=== PATIENT | male | born 1955 | race African-American/Black ===

== ENCOUNTER 2016-03-07 11:27 | Inpatient (IN) | payer OTHER ==
[2016-03-07 12:29] VITALS: BMI 34.7
--- NOTE | 2016-03-07 14:02 | HP ---
CIWA Score - CIWA Score Nausea/Vomitin-Int. Nausea w/Dry Heave (AND DIARRHEA) Muscle Tremors: 4-Moderate,w/Arms Extend Anxiety: 4-Mod. Anxious/Guarded Agitation: 4-Moderately Restless Paroxysmal Sweats: 1-Minimal Palms Moist Orientation: 0-Oriented Tacttile Disturbances: 3-Moderate Itch/Numb/Burn Auditory Disturbances: 0-None Visual Disturbances: 0-None Headache: 0-None Present CIWA-Ar Total Score: 20 Admission ROS S - HPI Chief Complaint: DETOX TX FOR ALCOHOL AND CRACK DEPENDENCE. Allergies/Adverse Reactions: Allergies Allergy/AdvReac Type Severity Reaction Status Date / Time shellfish derived Allergy Severe Hives Verified 09/05/14 11:33 No Known Drug Allergies Allergy Verified 09/05/14 11:33 BEETS Allergy Severe Hives Uncoded 09/05/14 11:33 History of Present Illness: 60 Y/O AA/MALE WITH A HX OF ALCOHOL AND CRACK DEPENDENCE SEEKING DETOX TX. ON OXYCODONE PRN FOR PAIN. Exam Limitations: No Limitations - Ebola screening Have you traveled outside of the country in the last 21 days: No Have you had contact with anyone from an Ebola affected area: No Have you been sick,other than usual withdrawal symptoms: No Do you have a fever: No - Review of Systems Constitutional: Chills, Night Sweats, Changes in sleep EENT: reports: Blurred Vision (WEARS GLASSES), Dental Problems (UPPER DENTURE IN PLACE; HAS BILATERAL DENTURES) Respiratory: reports: Shortness of Breath (HX ASTHMA), Wheezing Cardiac: reports: No Symptoms Reported GI: reports: Constipated, Diarrhea, Nausea, Vomiting : reports: No Symptoms Reported Musculoskeletal: reports: Back Pain (THREE HERNIATED DISCS), Joint Pain, Muscle Pain Integumentary: reports: No Symptoms Reported Neuro: reports: Headache (HX MIGRAINE HADACHES), Tremors, Unsteady Gait, Dizziness Endocrine: reports: No Symptoms Reported Hematology: reports: No Symptoms Reported Psychiatric: reports: Orientated x3, Anxious, Depressed (ON TRAZODONE) Other Systems: Reviewed and Negative Patient History - Patient Medical History Hx Anemia: No Hx Asthma: Yes (on inhaler) Hx Chronic Obstructive Pulmonary Disease (COPD): Yes (albuterol) Hx Cancer: No Hx Cardiac Disorders: No Hx Congestive Heart Failure: No Hx Hypertension: Yes (Patient is on meds.) Hx Hypercholesterolemia: Yes (on zocor) Hx Pacemaker: No HX Cerebrovascular Accident: No Hx Seizures: Yes (etoh rlt) Hx Dementia: No Hx Diabetes: No Hx Gastrointestinal Disorders: No Hx Genitourinary Disorders: No Hx Sexually Transmitted Disorders: No Hx Renal Disease (ESRD): No Hx Thyroid Disease: No Hx Human Immunodeficiency Virus (HIV): No (NEGATIVE HX) Hx Hepatitis C: No Hx Depression: Yes (ON MED) Hx Suicide Attempt: No (DENIES) Hx Bipolar Disorder: No Hx Schizophrenia: No - Patient Surgical History Past Surgical History: Yes Hx Neurologic Surgery: No Hx Cataract Extraction: No Hx Cardiac Surgery: No Hx Lung Surgery: No Hx Breast Surgery: No Hx Breast Biopsy: No Hx Abdominal Surgery: No Hx Appendectomy: No Hx Cholecystectomy: No Hx Genitourinary Surgery: No Hx Orthopedic Surgery: Yes (surgery for torn ligament right knee in 2007) Anesthesia Reaction: No - PPD History Previous Implant?: No Documented Results: Positive w/o proof Implanted On Prior R Admission?: No PPD to be Administered?: Yes - Reproductive History Patient is a Female of Child Bearing Age (11 -55 yrs old): No (MALE) - Smoking Cessation Smoking history: Current every day smoker Have you smoked in the past 12 months: Yes Aproximately how many cigarettes per day: 5 Cigars Per Day: 0 Hx Chewing Tobacco Use: No Initiated information on smoking cessation: Yes 'Breaking Loose' booklet given: 03/07/16 - Substance & Tx. History Hx Alcohol Use: Yes (VODKA/COGNAC/BEER) Hx Substance Use: Yes (CRACK) Substance Use Type: Alcohol, Cocaine Hx Substance Use Treatment: Yes - Substances Abused Alcohol Route: Oral Frequency: Daily Amount used: henessy / vodka 5 pints- beer 10. $60 Age of first use: 14 Date of Last Use: 03/07/16 Crack Route: Smoking Frequency: Daily Amount used: $200- 20bags Age of first use: 30 Date of Last Use: 03/05/16 Family Disease History - Family Disease History Family Disease History: Diabetes: Grandparent (HTN), Mother (HTN,LUNG CA.), Heart Disease: Grandparent, Mother Admission Physical Exam BHS - Vital Signs Vital Signs: Vital Signs - 24 hr 03/07/16 12:27 Temperature 96.9 F L Pulse Rate 84 Respiratory 18 Rate Blood Pressure 120/73 - Physical General Appearance: Yes: Moderate Distress, Irritable, Anxious HEENTM: Yes: EOMI, Normocephalic, AUNG, Pharynx Normal Respiratory: Yes: Chest Non-Tender, Lungs Clear, Normal Breath Sounds, No Respiratory Distress Neck: Yes: Supple, Trachea in good position Breast: Yes: Breast Exam Deferred Cardiology: Yes: Regular Rhythm, Regular Rate, S1, S2 Abdominal: Yes: Normal Bowel Sounds, Non Tender, Soft Genitourinary: Yes: Other (N/C) Musculoskeletal: Yes: full range of Motion, Gait Steady (WITH USE OF CANE) Extremities: Yes: Normal Range of Motion, Non-Tender Neurological: Yes: medicaid plan compliance director II-XII NML intact, Fully Oriented, Alert Integumentary: Yes: Dry, Warm Lymphatic: Yes: Within Normal Limits - Diagnostic (1) Asthma Current Visit: Yes Status: Chronic (2) Essential hypertension Current Visit: Yes Status: Chronic (3) Nicotine dependence Current Visit: Yes Status: Chronic (4) Obesity Current Visit: Yes Status: Chronic (5) Rash of groin Current Visit: No Status: Resolved (6) Alcohol dependence with uncomplicated withdrawal Current Visit: Yes Status: Acute (7) Cocaine dependence, uncomplicated Current Visit: Yes Status: Acute (8) Use of cane as ambulatory aid Current Visit: Yes Status: Chronic (9) Hypercholesterolemia Current Visit: Yes Status: Chronic Cleared for Admission [facility] - Detox or Rehab [facility] Level of Care: Medically Managed Detox Regimen/Protocol: Librium [facility] Breath Alcohol Content Breath Alcohol Content: 0.030 Urine Drug Screen - Results Drug Screen Negative: No Urine Drug Screen Results: THC-Marijuana, KIARA-Cocaine, OPI-Opiates
[2016-03-07] MEDS ORDERED: MAG HYDROX/AL HYDROX/SIMETH 30 ML UNIT-DOSE CUP PO PRN (14:09)
[2016-03-07] MEDS ORDERED: IBUPROFEN 400 MG TABLET (FP) PO PRN (14:09)
[2016-03-07] MEDS ORDERED: MENTHOL/PHENOL 1 EACH UD MM PRN (14:09)
[2016-03-07] MEDS ORDERED: diphenhydrAMINE HCL 50 MG CAPSULE PO PRN (14:09)
[2016-03-07] MEDS ORDERED: P-EPHED 60MG/TRIPROLIDI 2.5MG TABLET PO PRN (14:09)
[2016-03-07] MEDS ORDERED: NICOTINE POLACRILEX 2 MG GUM BUC PRN (14:09)
[2016-03-07] MEDS ORDERED: ACETAMINOPHEN 325 MG TABLET (FP) PO PRN (14:09)
[2016-03-07] MEDS ORDERED: guaiFENesin/D-METHORPHAN HB 10 ML UNIT-DOSE CUPS PO PRN (14:09)
[2016-03-07] MEDS ORDERED: MAGNESIUM HYDROX 2400MG/30ML ORAL SUSPENSION 30 ML CUP PO PRN (14:09)
[2016-03-07] MEDS ORDERED: MAGNESIUM CITRATE 300 ML BOTTLE PO PRN (14:09)
[2016-03-07] MEDS ORDERED: ALBUTEROL SO4 6.7 GM HFA INHALER IH PRN (14:13)
[2016-03-07] MEDS ORDERED: IBUPROFEN PO SCH (14:15)
[2016-03-07] MEDS: NICOTINE 14 MG/24 HOURS TOPICAL PATCH TD SCH (15:46)
[2016-03-07] MEDS: chlordiazePOXIDE HCL 25 MG CAPSULE PO PRN (15:47)
[2016-03-07] MEDS: chlordiazePOXIDE HCL 25 MG CAPSULE PO SCH ×2 (17:29→22:16)
[2016-03-07 20:26] LABS: URINE APPEARANCE CLEAR; URINE BILIRUBIN NEGATIVE (NEGATIVE); URINE BLOOD NEGATIVE (NEGATIVE); URINE COLOR DKYELLOW; URINE GLUCOSE (UA) NEGATIVE (NEGATIVE); URINE KETONE NEGATIVE (NEGATIVE); URINE LEUK ESTERASE NEGATIVE (NEGATIVE); URINE NITRITE NEGATIVE (NEGATIVE); URINE PROTEIN NEGATIVE (NEGATIVE); URINE UROBILINOGEN 2.0 E.U/dl E.U./dl (0.2-1.0)
[2016-03-07] MEDS: THIAMINE HCL 100 MG TABLET (FP) PO SCH (22:16)
[2016-03-07] MEDS: ATORVASTATIN CA 10 MG TABLET (FP) PO SCH (22:16)
[2016-03-08] MEDS: chlordiazePOXIDE HCL 25 MG CAPSULE PO SCH ×4 (05:33→22:12)
--- NOTE | 2016-03-08 08:16 | CONSULT ---
[facility] Psychiatric Consult - Data Date of interview: 03/08/16 Admission source: [facility] Identifying data: This is 60 years old male with no psychiatric hospitalization history, history of MDD, ambulating with cane, intoxicated with: Alcohol, Crack , Opioids and Nicotine Substance Abuse History: - Smoking Cessation. Smoking history: Current every day smoker. Have you smoked in the past 12 months: Yes. Aproximately how many cigarettes per day: 5. Cigars Per Day: 0. Hx Chewing Tobacco Use: No. Initiated information on smoking cessation: Yes. 'Breaking Loose' booklet given : 03/07/16. - Substance & Tx. History. Hx Alcohol Use: Yes (VODKA/COGNAC/BEER) . Hx Substance Use: Yes (CRACK). Substance Use Type: Alcohol, Cocaine. Hx Substance Use Treatment: Yes. - Substances Abused. Alcohol. Route: Oral. Frequency: Daily. Amount used: henessy / vodka 5 pints- beer 10. $60. Age of first use: 14. Date of Last Use: 03/07/16. Crack. Route: Smoking. Frequency: Daily. Amount used: $200- 20bags. Age of first use: 30. Date of Last Use: 03/05/16 Medical History: Asthma, HTN, Hypercholesterolemia, Obesity, Psychiatric History: Patient reports history of MDD, reports currently stable on : Celexa 20mg poqd. Trazodone 100mg po qhs Physical/Sexual Abuse/Trauma History: Denies Additional Comment: Celexa 20mg poqd. Trazodone 100mg po qhs Mental Status Exam - Mental Status Exam Alert and Oriented to: Person Cognitive Function: Fair Patient Appearance: Unkempt Mood: Sad Affect: Normal Range Patient Behavior: Sedated Speech Pattern: Delayed Voice Loudness: Normal Thought Process: Goal Oriented Thought Disorder: Being Controlled Hallucinations: Denies Suicidal Ideation: Denies Homicidal Ideation: Denies Insight/Judgement: Fair Sleep: Difficulty falling asleep Appetite: Weight gain Muscle strength/Tone: Mild Hypotonicity Gait/Station: Shuffling Additional Comments: Celexa 20mg poqd. Trazodone 100mg po qhs Psychiatric Findings - Problem List ([place] 1, 2,3) (1) Alcohol dependence with uncomplicated withdrawal Current Visit: Yes Status: Acute (2) Cocaine dependence, uncomplicated Current Visit: Yes Status: Acute (3) Nicotine dependence Current Visit: Yes Status: Chronic (4) Obesity Current Visit: Yes Status: Chronic (5) MDD (major depressive disorder) Current Visit: No Status: Acute (6) Opioid dependence Current Visit: No Status: Chronic - Initial Treatment Plan Initial Treatment Plan: Celexa 20mg poqd. Trazodone 100mg po qhs
[2016-03-08] MEDS: IBUPROFEN 400 MG TABLET (FP) PO PRN (09:14)
[2016-03-08 10:19] LABS: MCH 30.1 pg (25.7-33.7); MCHC 33.8 g/dl (32.0-35.9); MEAN CELL VOLUME 88.9 fl (80-96); PLATELET COUNT 219 K/MM3 (134-434); RDW 13.5 % (11.9-15.9); WHITE BLOOD COUNT 6.9 K/mm3 (4.0-10.0)
[2016-03-08] MEDS: PRENATAL VITAMINS W/ FOLIC ACID TABLET (FP) PO SCH (10:23)
[2016-03-08] MEDS: NICOTINE 14 MG/24 HOURS TOPICAL PATCH TD SCH (10:23)
[2016-03-08] MEDS: HYDROCHLOROTHIAZIDE 25 MG TABLET (FP) PO SCH (10:23)
[2016-03-08] MEDS: CITALOPRAM HYDROBROMIDE 20 MG TABLET (FP) PO SCH (10:23)
[2016-03-08 10:27] LABS: ALBUMIN 3.9 g/dl (3.4-5.0); ALK PHOS 52 U/L (45-117); ANION GAP 11 (8-16); BILIRUBIN,TOTAL 0.4 mg/dL (0.2-1.0); CO2 24 mmol/L (21-32); CREATININE 1.1 mg/dL (0.7-1.3); GLUCOSE,RANDOM 106 mg/dL (74-106); SGOT/AST 21 U/L (15-37); SGPT/ALT 25 U/L (12-78); TOT PROT 7.4 g/dl (6.4-8.2)
--- NOTE | 2016-03-08 11:09 | PN ---
S CIWA - CIWA Score Nausea/Vomitin-No Nausea/No Vomiting Muscle Tremors: 4-Moderate,w/Arms Extend Anxiety: 3 Agitation: 3 Paroxysmal Sweats: 2 Orientation: 0-Oriented Tacttile Disturbances: 0-None Auditory Disturbances: 0-None Visual Disturbances: 0-None Headache: 1-Very Mild CIWA-Ar Total Score: 13 BHS Progress Note (SOAP) Subjective: headache constipation interrupted sleep agitation sweats Objective: 03/08/16 11:07 Vital Signs Temperature 97.5 F L 03/08/16 10:03 Pulse Rate 75 03/08/16 10:03 Respiratory Rate 18 03/08/16 10:03 Blood Pressure 133/88 03/08/16 10:03 O2 Sat by Pulse Oximetry (%) Laboratory Tests 03/07/16 03/08/16 03/08/16 15:00 05:45 05:45 WBC 6.9 RBC 4.36 Hgb 13.1 D Hct 38.7 MCV 88.9 MCHC 33.8 RDW 13.5 Plt Count 219 MPV 9.0 Sodium 139 Potassium 3.7 Chloride 104 Carbon Dioxide 24 Anion Gap 11 BUN 13 D Creatinine 1.1 Creat Clearance w eGFR > 60 Random Glucose 106 D Calcium 9.0 Total Bilirubin 0.4 AST 21 D ALT 25 Alkaline Phosphatase 52 Total Protein 7.4 Albumin 3.9 Urine Color Dkyellow Urine Appearance Clear Urine pH 6.0 Ur Specific [place] 1.029 Urine Protein Negative Urine Glucose (UA) Negative Urine Ketones Negative Urine Blood Negative Urine Nitrite Negative Urine Bilirubin Negative Urine Urobilinogen 2.0 e.u/dl Ur Leukocyte Esterase Negative awake/alert ambulating no acute distress labs pending Assessment: 03/08/16 11:07 withdrawal sx Plan: continue detox increase fluids citroma prn
[2016-03-08 11:39] LABS: HIV 1 & 2 AB NEGATIVE; HIV 1 AGp24 NEGATIVE
--- NOTE | 2016-03-08 17:06 | EKG ---
Test Reason : Blood Pressure : / mmHG Vent. Rate : 082 BPM Atrial Rate : 082 BPM P-R Int : 174 ms QRS Dur : 080 ms QT Int : 364 ms P-R-T Axes : 070 050 032 degrees QTc Int : 425 ms NORMAL SINUS RHYTHM NORMAL ECG NO PREVIOUS ECGS AVAILABLE Confirmed by TRACEY JIMENEZ MD ([id number]) on 03/08/2016 5:06:41 PM Referred By: Confirmed By:TRACEY JIMENEZ MD
[2016-03-08] MEDS: traZODone HCL 100 MG TABLET (FP) PO SCH (22:12)
[2016-03-08] MEDS: ATORVASTATIN CA 10 MG TABLET (FP) PO SCH (22:12)
[2016-03-08] MEDS: THIAMINE HCL 100 MG TABLET (FP) PO SCH (22:12)
[2016-03-09] MEDS: chlordiazePOXIDE HCL 25 MG CAPSULE PO SCH ×2 (05:34→10:38)
[2016-03-09] MEDS ORDERED: ASPIRIN 81 MG CHEWABLE TABLETS PO ONE (09:19)
[2016-03-09] MEDS ORDERED: NITROGLYCERIN SUBLINGUAL 1/150 0.4 MG TAB SL ONE (09:20)
[2016-03-09] MEDS: PRENATAL VITAMINS W/ FOLIC ACID TABLET (FP) PO SCH (09:39)
[2016-03-09] MEDS: HYDROCHLOROTHIAZIDE 25 MG TABLET (FP) PO SCH (09:39)
[2016-03-09] MEDS: CITALOPRAM HYDROBROMIDE 20 MG TABLET (FP) PO SCH (09:39)
[2016-03-09] MEDS: NICOTINE 14 MG/24 HOURS TOPICAL PATCH TD SCH (10:35)
--- NOTE | 2016-03-09 10:55 | PN ---
[facility] CIWA - CIWA Score Nausea/Vomitin-No Nausea/No Vomiting Muscle Tremors: 3 Anxiety: 3 Agitation: 3 Paroxysmal Sweats: 3 Orientation: 0-Oriented Tacttile Disturbances: 0-None Auditory Disturbances: 0-None Visual Disturbances: 0-None Headache: 0-None Present CIWA-Ar Total Score: 12 S Progress Note (SOAP) Subjective: chest pain or heart burn not sure sweats interrupted sleep body aches Objective: 03/09/16 10:52 Vital Signs Temperature 97.5 F L 03/09/16 10:00 Pulse Rate 78 03/09/16 10:00 Respiratory Rate 18 03/09/16 10:00 Blood Pressure 124/76 03/09/16 10:00 O2 Sat by Pulse Oximetry (%) Laboratory Tests 03/07/16 03/07/16 03/08/16 13:50 15:00 05:45 WBC 6.9 RBC 4.36 Hgb 13.1 D Hct 38.7 MCV 88.9 MCHC 33.8 RDW 13.5 Plt Count 219 MPV 9.0 Sodium Potassium Chloride Carbon Dioxide Anion Gap BUN Creatinine Creat Clearance w eGFR Random Glucose Calcium Total Bilirubin AST ALT Alkaline Phosphatase Total Protein Albumin Urine Color Dkyellow Urine Appearance Clear Urine pH 6.0 Ur Specific [place] 1.029 Urine Protein Negative Urine Glucose (UA) Negative Urine Ketones Negative Urine Blood Negative Urine Nitrite Negative Urine Bilirubin Negative Urine Urobilinogen 2.0 e.u/dl Ur Leukocyte Esterase Negative RPR Titer Hepatitis C Antibody HIV 1&2 Antibody Screen Negative HIV P24 Antigen Negative 03/08/16 03/08/16 03/08/16 05:45 05:45 05:45 WBC RBC Hgb Hct MCV MCHC RDW Plt Count MPV Sodium 139 Potassium 3.7 Chloride 104 Carbon Dioxide 24 Anion Gap 11 BUN 13 D Creatinine 1.1 Creat Clearance w eGFR > 60 Random Glucose 106 D Calcium 9.0 Total Bilirubin 0.4 AST 21 D ALT 25 Alkaline Phosphatase 52 Total Protein 7.4 Albumin 3.9 Urine Color Urine Appearance Urine pH Ur Specific [place] Urine Protein Urine Glucose (UA) Urine Ketones Urine Blood Urine Nitrite Urine Bilirubin Urine Urobilinogen Ur Leukocyte Esterase RPR Titer Nonreactive Hepatitis C Antibody <0.1 HIV 1&2 Antibody Screen HIV P24 Antigen repeat ekg nitrostat 0.4mg x one asa 81mg x one Assessment: 03/09/16 10:53 withdrawal sx Plan: continue detox increase fluids repeat ekg results reveal normal ekg; no difference from previous ekg nitrostat x one f/u pt status
[2016-03-09] MEDS: chlordiazePOXIDE 5 MG CAPSULE PO SCH ×2 (19:15→22:17)
[2016-03-09] MEDS: chlordiazePOXIDE HCL 25 MG CAPSULE PO PRN (19:46)
[2016-03-09] MEDS: ATORVASTATIN CA 10 MG TABLET (FP) PO SCH (22:17)
[2016-03-09] MEDS: THIAMINE HCL 100 MG TABLET (FP) PO SCH (22:17)
[2016-03-09] MEDS: traZODone HCL 100 MG TABLET (FP) PO SCH (22:17)
[2016-03-09] MEDS: IBUPROFEN 400 MG TABLET (FP) PO PRN (22:19)
[2016-03-09] MEDS ORDERED: ALBUTEROL SO4 6.7 GM HFA INHALER IH ONE (22:24)
[2016-03-10] MEDS: BUDESONIDE/FORMETEROL FUMARATE 80/4.5 mcg INHALER IH SCH ×2 (01:40→22:43)
[2016-03-10] MEDS: chlordiazePOXIDE 5 MG CAPSULE PO SCH ×2 (06:01→10:50)
[2016-03-10] MEDS: ALBUTEROL SO4 0.5 % INH SOLN 2.5 MG/0.5 ML VIAL.NEB. NEB PRN ×2 (06:30→17:00)
--- NOTE | 2016-03-10 09:44 | PN ---
S Progress Note (SOAP) Subjective: nausea, sweats, interrupted sleep, anxiety, trmeors, diarrhea reported Objective: 03/10/16 09:44 Vital Signs - 24 hr 03/09/16 03/09/16 03/09/16 10:00 17:47 21:54 Temperature 97.5 F L 97.3 F L 97.9 F Pulse Rate 78 84 76 Respiratory 18 18 20 Rate Blood Pressure 124/76 121/84 107/77 03/10/16 03/10/16 03/10/16 00:30 03:30 06:25 Temperature 97.4 F L Pulse Rate 61 Respiratory 18 18 16 Rate Blood Pressure 109/60 Laboratory Tests 03/07/16 03/07/16 03/08/16 13:50 15:00 05:45 WBC 6.9 RBC 4.36 Hgb 13.1 D Hct 38.7 MCV 88.9 MCHC 33.8 RDW 13.5 Plt Count 219 MPV 9.0 Sodium Potassium Chloride Carbon Dioxide Anion Gap BUN Creatinine Creat Clearance w eGFR Random Glucose Calcium Total Bilirubin AST ALT Alkaline Phosphatase Total Protein Albumin Urine Color Dkyellow Urine Appearance Clear Urine pH 6.0 Ur Specific [place] 1.029 Urine Protein Negative Urine Glucose (UA) Negative Urine Ketones Negative Urine Blood Negative Urine Nitrite Negative Urine Bilirubin Negative Urine Urobilinogen 2.0 e.u/dl Ur Leukocyte Esterase Negative RPR Titer Hepatitis C Antibody HIV 1&2 Antibody Screen Negative HIV P24 Antigen Negative 03/08/16 03/08/16 03/08/16 05:45 05:45 05:45 WBC RBC Hgb Hct MCV MCHC RDW Plt Count MPV Sodium 139 Potassium 3.7 Chloride 104 Carbon Dioxide 24 Anion Gap 11 BUN 13 D Creatinine 1.1 Creat Clearance w eGFR > 60 Random Glucose 106 D Calcium 9.0 Total Bilirubin 0.4 AST 21 D ALT 25 Alkaline Phosphatase 52 Total Protein 7.4 Albumin 3.9 Urine Color Urine Appearance Urine pH Ur Specific [place] Urine Protein Urine Glucose (UA) Urine Ketones Urine Blood Urine Nitrite Urine Bilirubin Urine Urobilinogen Ur Leukocyte Esterase RPR Titer Nonreactive Hepatitis C Antibody <0.1 HIV 1&2 Antibody Screen HIV P24 Antigen Assessment: 03/10/16 09:44 withdrawal sx, diarrhea, nausea Plan: cont detox, symptomatic relief, encourage fluids, ambulation
[2016-03-10] MEDS: PRENATAL VITAMINS W/ FOLIC ACID TABLET (FP) PO SCH (10:50)
[2016-03-10] MEDS: HYDROCHLOROTHIAZIDE 25 MG TABLET (FP) PO SCH (10:50)
[2016-03-10] MEDS: CITALOPRAM HYDROBROMIDE 20 MG TABLET (FP) PO SCH (10:50)
[2016-03-10] MEDS: NICOTINE 14 MG/24 HOURS TOPICAL PATCH TD SCH (10:52)
[2016-03-10] MEDS: LOPERAMIDE HCL 2 MG CAPSULE PO PRN ×2 (10:52→17:32)
[2016-03-10] MEDS ORDERED: ONDANSETRON 4 MG TABLET PO ONE ×2 (10:58→14:00)
[2016-03-10] MEDS: chlordiazePOXIDE HCL 25 MG CAPSULE PO PRN (12:33)
[2016-03-10] MEDS: hydrOXYzine PAMOATE 25 MG CAPSULE (FP) PO PRN (12:33)
[2016-03-10] MEDS: chlordiazePOXIDE HCL 10 MG CAPSULE PO SCH ×2 (17:31→22:42)
[2016-03-10] MEDS: ATORVASTATIN CA 10 MG TABLET (FP) PO SCH (22:41)
[2016-03-10] MEDS: THIAMINE HCL 100 MG TABLET (FP) PO SCH (22:41)
[2016-03-10] MEDS: traZODone HCL 100 MG TABLET (FP) PO SCH (22:42)
[2016-03-11] MEDS: chlordiazePOXIDE HCL 10 MG CAPSULE PO SCH (05:43)
[2016-03-11] MEDS: LOPERAMIDE HCL 2 MG CAPSULE PO PRN (05:45)
[2016-03-11] MEDS: ALBUTEROL SO4 0.5 % INH SOLN 2.5 MG/0.5 ML VIAL.NEB. NEB PRN (08:30)
--- NOTE | 2016-03-11 09:00 | PN ---
S Progress Note (SOAP) Subjective: still c/o nausea and vomiting, sob in spite of completing detox and symptomatic medications administered. Objective: 03/11/16 08:58 Vital Signs - 8 hr 03/11/16 03/11/16 03:30 06:00 Temperature 97.5 F L Pulse Rate 77 Respiratory 18 18 Rate Blood Pressure 109/58 Laboratory Tests 03/07/16 03/07/16 03/08/16 13:50 15:00 05:45 WBC 6.9 RBC 4.36 Hgb 13.1 D Hct 38.7 MCV 88.9 MCHC 33.8 RDW 13.5 Plt Count 219 MPV 9.0 Sodium Potassium Chloride Carbon Dioxide Anion Gap BUN Creatinine Creat Clearance w eGFR Random Glucose Calcium Total Bilirubin AST ALT Alkaline Phosphatase Total Protein Albumin Urine Color Dkyellow Urine Appearance Clear Urine pH 6.0 Ur Specific [place] 1.029 Urine Protein Negative Urine Glucose (UA) Negative Urine Ketones Negative Urine Blood Negative Urine Nitrite Negative Urine Bilirubin Negative Urine Urobilinogen 2.0 e.u/dl Ur Leukocyte Esterase Negative RPR Titer Hepatitis C Antibody HIV 1&2 Antibody Screen Negative HIV P24 Antigen Negative 03/08/16 03/08/16 03/08/16 05:45 05:45 05:45 WBC RBC Hgb Hct MCV MCHC RDW Plt Count MPV Sodium 139 Potassium 3.7 Chloride 104 Carbon Dioxide 24 Anion Gap 11 BUN 13 D Creatinine 1.1 Creat Clearance w eGFR > 60 Random Glucose 106 D Calcium 9.0 Total Bilirubin 0.4 AST 21 D ALT 25 Alkaline Phosphatase 52 Total Protein 7.4 Albumin 3.9 Urine Color Urine Appearance Urine pH Ur Specific [place] Urine Protein Urine Glucose (UA) Urine Ketones Urine Blood Urine Nitrite Urine Bilirubin Urine Urobilinogen Ur Leukocyte Esterase RPR Titer Nonreactive Hepatitis C Antibody <0.1 HIV 1&2 Antibody Screen HIV P24 Antigen Assessment: 03/11/16 08:59 medically stable, completed detox, Plan: d/c today, give medications prior to d/c, discussed need for f/u with PCP go to ER if symptoms persist.
--- NOTE | 2016-03-11 09:02 | DS ---
[facility] Detox Discharge Summary Admission Date: 03/07/16 Discharge Date: 03/11/16 - History Present History: Alcohol Dependence, Cocaine Dependence Pertinent Past History: asthma, HTN, nausea, vomiting, spb, anxiety, depression and insomnia - Physical Exam Results Vital Signs: Vital Signs Temperature 97.5 F L 03/11/16 06:00 Pulse Rate 77 03/11/16 06:00 Respiratory Rate 18 03/11/16 06:00 Blood Pressure 109/58 03/11/16 06:00 O2 Sat by Pulse Oximetry (%) Pertinent Admission Physical Exam Findings: withdrawal sx - Treatment Hospital Course: Detox Protocol Followed, Detoxed Safely, Responded well, Discharged Condition Good, Rehab Referral Accepted Patient has Accepted a Rehab Referral to: Yes - Medication Discharge Medications: Ambulatory Orders Trazodone HCl [Desyrel -] 100 mg PO HS #30 tablet 04/07/13 Salmeterol/Fluticasone [Advair 250Mcg/50Mcg -] 1 inh PO BID #1 inh 04/10/13 Ibuprofen [Motrin -] 800 mg PO Q8H 09/05/14 Albuterol Sulfate Inhaler - [Ventolin HFA Inhaler -] 2 inh IH Q4H PRN #1 inh 05/02 Simvastatin [Zocor -] 20 mg PO HS #30 tablet 09/20/14 Citalopram Hydrobromide [Celexa -] 20 mg PO DAILY 03/07/16 Hydrochlorothiazide [Hctz -] 50 mg PO DAILY 03/07/16 Citalopram Hydrobromide [Celexa -] 20 mg PO DAILY #30 tablet 03/08/16 Trazodone HCl [Desyrel -] 100 mg PO HS #30 tablet 03/08/16 - Diagnosis (1) Alcohol dependence with uncomplicated withdrawal Current Visit: Yes Status: Acute (2) Cocaine dependence, uncomplicated Current Visit: Yes Status: Acute (3) Asthma Current Visit: Yes Status: Chronic (4) Essential hypertension Current Visit: Yes Status: Chronic (5) Hypercholesterolemia Current Visit: Yes Status: Chronic (6) Nicotine dependence Current Visit: Yes Status: Chronic (7) Obesity Current Visit: Yes Status: Chronic (8) Use of cane as ambulatory aid Current Visit: Yes Status: Chronic (9) Bereavement Current Visit: No Status: Acute (10) MDD (major depressive disorder) Current Visit: No Status: Acute (11) Opioid dependence Current Visit: No Status: Chronic - AMA Did Patient Leave Against Medical Advice: No
[2016-03-11] MEDS: HYDROCHLOROTHIAZIDE 25 MG TABLET (FP) PO SCH (10:05)
[2016-03-11] MEDS: hydrOXYzine PAMOATE 25 MG CAPSULE (FP) PO PRN (10:05)
[2016-03-11] MEDS: CITALOPRAM HYDROBROMIDE 20 MG TABLET (FP) PO SCH (10:05)
[2016-03-11] MEDS: PRENATAL VITAMINS W/ FOLIC ACID TABLET (FP) PO SCH (10:05)
[2016-03-11] MEDS: BUDESONIDE/FORMETEROL FUMARATE 80/4.5 mcg INHALER IH SCH (10:05)
[2016-03-11] MEDS: NICOTINE 14 MG/24 HOURS TOPICAL PATCH TD SCH (10:05)
[2016-03-11 10:56] VITALS: BP 111/62; PULSE 80; TEMP 95.5
--- NOTE | 2016-03-12 12:53 | EKG ---
Test Reason : Blood Pressure : / mmHG Vent. Rate : 077 BPM Atrial Rate : 077 BPM P-R Int : 188 ms QRS Dur : 084 ms QT Int : 372 ms P-R-T Axes : 068 046 025 degrees QTc Int : 420 ms NORMAL SINUS RHYTHM NORMAL ECG WHEN COMPARED WITH ECG OF 07-MAR-2016 15:40, NO SIGNIFICANT CHANGE WAS FOUND Confirmed by ZHOU COOPER MD ([id number]) on 03/12/2016 12:53:24 PM Referred By: Confirmed By:ZHOU COOPER MD
== END 2016-03-11 10:27 | disposition home or self-care (01) | DRG 774 ==
LOC: YASAS 11:27 → Y6N 14:43
PROVIDERS: ADMIT Internal Medicine Addiction Medicine; ATTEND Internal Medicine Addiction Medicine
PROC: HZ2ZZZZ Detoxification Services for Substance Abuse Treatment (ICD-10-PCS; principal; 2016-03-07)
DX: F10.230 Alcohol dependence with withdrawal, uncomplicated (principal); F14.20 Cocaine dependence, uncomplicated; F17.210 Nicotine dependence, cigarettes, uncomplicated; F33.9 Major depressive disorder, recurrent, unspecified; Z63.4 Disappearance and death of family member; I10 Essential (primary) hypertension; E78.00 Pure hypercholesterolemia, unspecified; J45.909 Unspecified asthma, uncomplicated; J44.9 Chronic obstructive pulmonary disease, unspecified; E66.9 Obesity, unspecified; R26.2 Difficulty in walking, not elsewhere classified; R11.0 Nausea; R21 Rash and other nonspecific skin eruption; R19.7 Diarrhea, unspecified; Z86.69 Personal history of other diseases of the nervous system and sense organs
CPT/HCPCS: 36415; 71020-TC; 80053; 81003; 85027; 86593; 86803; 87389; 93005; 93010; 94640

== ENCOUNTER 2017-04-25 12:25 | Inpatient (IN) | payer OTHER ==
[2017-04-25 15:33] VITALS: BMI 36.2
--- NOTE | 2017-04-25 16:26 | HP ---
CIWA Score - CIWA Score Nausea/Vomitin Muscle Tremors: 4-Moderate,w/Arms Extend Anxiety: 3 Agitation: 0-Normal Activity Paroxysmal Sweats: 3 Orientation: 1-Uncertain about Date Tacttile Disturbances: 0-None Auditory Disturbances: 0-None Visual Disturbances: 0-None Headache: 3-Moderate CIWA-Ar Total Score: 16 Admission ROS S - HPI Chief Complaint: "I am here for detox, alcohol is a brig problem for me" Allergies/Adverse Reactions: Allergies Allergy/AdvReac Type Severity Reaction Status Date / Time shellfish derived Allergy Severe Hives Verified 04/25/17 16:21 No Known Drug Allergies Allergy Verified 04/25/17 16:21 BEETS Allergy Severe Hives Uncoded 04/25/17 16:21 History of Present Illness: 62 yo male with hx alcohol, crack / cocaine dependence is here seeking detox. Last detox 03/07/16 - 03/11/16 at [facility] . PMHX: Positive PPD with treatment, HTN, hyperlipidemia, major depressive disorder, chronic back pain, insomnia, frequent headaches treated out patient with botox. Denies hx of seizure Denies suicidal / homicidal ideation or suicide attempts. Longest period of sobriety 9 years. Exam Limitations: No Limitations - Ebola screening Have you traveled outside of the country in the last 21 days: No Have you had contact with anyone from an Ebola affected area: No Have you been sick,other than usual withdrawal symptoms: No Do you have a fever: No - Review of Systems Constitutional: Chills, Changes in sleep, Other (weight gain 17 lbs) EENT: reports: No Symptoms Reported Respiratory: reports: Cough, Wheezing (asthmatic last time inhaler use Saturday) Cardiac: reports: Other (reports no chest pain presently, but gets chest pain when smoking crack) GI: reports: Constipated, Poor Fluid Intake, Indigestion : reports: Frequency Musculoskeletal: reports: Back Pain, Other (b/t lower extremities) Neuro: reports: Headache Endocrine: reports: Unexplained Weight Gain Hematology: reports: No Symptoms Reported Psychiatric: reports: Orientated x3, Depressed (reports has been to about 20 funerals in the last six months) Other Systems: Reviewed and Negative Patient History - Patient Medical History Hx Anemia: No Hx Asthma: Yes (on inhaler) Hx Chronic Obstructive Pulmonary Disease (COPD): Yes (albuterol) Hx Cancer: No Hx Cardiac Disorders: No Hx Congestive Heart Failure: No Hx Hypertension: Yes (Patient is on meds.) Hx Hypercholesterolemia: Yes (on zocor) Hx Pacemaker: No HX Cerebrovascular Accident: No Hx Seizures: Yes (etoh rlt ) Hx Dementia: No Hx Diabetes: No Hx Gastrointestinal Disorders: No Hx Genitourinary Disorders: No Hx Sexually Transmitted Disorders: No Hx Renal Disease (ESRD): No Hx Thyroid Disease: No Hx Human Immunodeficiency Virus (HIV): No (NEGATIVE HX) Hx Hepatitis C: No Hx Depression: Yes (ON MED) Hx Suicide Attempt: No (DENIES) Hx Bipolar Disorder: No Hx Schizophrenia: No - Patient Surgical History Past Surgical History: Yes Hx Neurologic Surgery: No Hx Cataract Extraction: No Hx Cardiac Surgery: No Hx Lung Surgery: No Hx Breast Surgery: No Hx Breast Biopsy: No Hx Abdominal Surgery: No Hx Appendectomy: No Hx Cholecystectomy: No Hx Genitourinary Surgery: No Hx Section: No Hx Orthopedic Surgery: Yes (surgery for torn ligament right knee in 2007, left hammer toe 2016) Hx Hysterectomy: No Anesthesia Reaction: No - PPD History Previous Implant?: Yes Documented Results: Positive w/proof PPD to be Administered?: No - Reproductive History Patient is a Female of Child Bearing Age (11 -55 yrs old): No - Smoking Cessation Smoking history: Former smoker Have you smoked in the past 12 months: No Aproximately how many cigarettes per day: 0 Cigars Per Day: 0 Hx Chewing Tobacco Use: No Initiated information on smoking cessation: No - Substance & Tx. History Hx Alcohol Use: Yes Substance Use Type: Alcohol, Cocaine Hx Substance Use Treatment: Yes ([facility] 03/07/16 - 03/11/16) - Substances Abused Crack Route: Smoking Frequency: Daily Amount used: $300 Age of first use: 29 Date of Last Use: 04/25/17 Alcohol-brandt/beer Route: Oral Frequency: Daily Amount used: fifth/1-6 pk. Age of first use: 19 Date of Last Use: 04/25/17 Family Disease History - Family Disease History Family Disease History: Diabetes: Grandparent (HTN), Mother (HTN,LUNG CA.), Heart Disease: Grandparent, Mother Admission Physical Exam BHS - Vital Signs Vital Signs: Vital Signs - 24 hr 04/25/17 15:32 Temperature 97.4 F L Pulse Rate 105 H Respiratory 20 Rate Blood Pressure 133/83 - Physical General Appearance: Yes: Nourished, Appropriately Dressed, Obese, Sweating, Anxious HEENTM: Yes: Hearing grossly Normal, Normal ENT Inspection, Normocephalic, Normal Voice, AUNG, Pharynx Normal, Tm's normal Respiratory: Yes: Chest Non-Tender, Lungs Clear, Normal Breath Sounds, No Respiratory Distress, No Accessory Muscle Use Neck: Yes: No masses,lesions,Nodules, Trachea in good position Breast: Yes: Breast Exam Deferred Cardiology: Yes: Regular Rhythm, Regular Rate Abdominal: Yes: Normal Bowel Sounds, Non Tender, Soft, Protuberent Genitourinary: Yes: Within Normal Limits Back: Yes: Normal Inspection Musculoskeletal: Yes: full range of Motion, Gait Steady, Pelvis Stable, Back pain Extremities: Yes: Normal Capillary Refill, Normal Inspection, Normal Range of Motion, Non-Tender Neurological: Yes: pulp cooker II-XII NML intact, Fully Oriented, Alert, Motor Strength 5/5, Normal Response, Depressed Affect Integumentary: Yes: Normal Color, Dry, Warm Lymphatic: Yes: Within Normal Limits - Diagnostic (1) Chronic back pain Current Visit: Yes Status: Chronic Qualifiers: Back pain location: low back pain Back pain laterality: bilateral Sciatica presence: without sciatica Qualified Code(s): M54.5 - Low back pain; G89.29 - Other chronic pain; G89.29 - Other chronic pain (2) Alcohol dependence with uncomplicated withdrawal Current Visit: Yes Status: Acute (3) Bereavement Current Visit: Yes Status: Chronic (4) Cocaine dependence, uncomplicated Current Visit: Yes Status: Chronic (5) MDD (major depressive disorder) Current Visit: No Status: Suspected Qualifiers: Major depression episode severity: unspecified (6) Asthma Current Visit: Yes Status: Chronic (7) Essential hypertension Current Visit: Yes Status: Chronic (8) Hypercholesterolemia Current Visit: Yes Status: Chronic (9) Obesity Current Visit: Yes Status: Chronic Cleared for Admission S - Detox or Rehab [facility] Level of Care: Medically Managed Detox Regimen/Protocol: Librium S Breath Alcohol Content Breath Alcohol Content: 0 Urine Drug Screen - Results Drug Screen Negative: No Urine Drug Screen Results: KIARA-Cocaine
[2017-04-25] MEDS ORDERED: guaiFENesin/D-METHORPHAN HB 10 ML UNIT-DOSE CUPS PO PRN (16:34)
[2017-04-25] MEDS ORDERED: MENTHOL/PHENOL 1 EACH UD MM PRN (16:34)
[2017-04-25] MEDS ORDERED: ACETAMINOPHEN 325 MG TABLET (FP) PO PRN (16:34)
[2017-04-25] MEDS ORDERED: MAGNESIUM CITRATE 300 ML BOTTLE PO PRN (16:34)
[2017-04-25] MEDS ORDERED: MAG HYDROX/AL HYDROX/SIMETH 30 ML UNIT-DOSE CUP PO PRN (16:34)
[2017-04-25] MEDS ORDERED: P-EPHED 60MG/TRIPROLIDI 2.5MG TABLET PO PRN (16:34)
[2017-04-25] MEDS ORDERED: MAGNESIUM HYDROX 2400MG/30ML ORAL SUSPENSION 30 ML CUP PO PRN (16:34)
[2017-04-25] MEDS ORDERED: IBUPROFEN 400 MG TABLET (FP) PO PRN ×2 (16:34→16:38)
[2017-04-25] MEDS ORDERED: LOPERAMIDE HCL 2 MG CAPSULE PO PRN (16:34)
[2017-04-25] MEDS ORDERED: ALBUTEROL SO4 18 GM HFA INHALER IH PRN (16:37)
[2017-04-25] MEDS ORDERED: ALBUTEROL SO4 2.5/IPRATROPIUM 0.5 INH SOL 3 ML VIAL.NEB. NEB PRN (16:42)
[2017-04-25] MEDS ORDERED: chlordiazePOXIDE HCL 25 MG CAPSULE PO ONE (18:15)
[2017-04-25 21:05] LABS: URINE APPEARANCE CLEAR; URINE BILIRUBIN NEGATIVE (NEGATIVE); URINE BLOOD NEGATIVE (NEGATIVE); URINE COLOR YELLOW; URINE GLUCOSE (UA) NEGATIVE (NEGATIVE); URINE KETONE NEGATIVE (NEGATIVE); URINE LEUK ESTERASE NEGATIVE (NEGATIVE); URINE NITRITE NEGATIVE (NEGATIVE); URINE PROTEIN NEGATIVE (NEGATIVE); URINE UROBILINOGEN 4.0 E.U/dl mg/dL (0.2-1.0)
[2017-04-25] MEDS ORDERED: PATIENT'S OWN MEDICATION (NON-FORMULARY) (Salmeterol/Fluticasone [Advair 250mcg/50mcg -] 1 PO SCH (22:00)
[2017-04-25] MEDS: chlordiazePOXIDE HCL 25 MG CAPSULE PO SCH (22:23)
[2017-04-25] MEDS: ATORVASTATIN CA 20 MG TABLET (FP) PO SCH (22:23)
[2017-04-25] MEDS: THIAMINE HCL 100 MG TABLET (FP) PO SCH (22:23)
[2017-04-25] MEDS: BUDESONIDE/FORMETEROL FUMARATE 80/4.5 mcg INHALER IH SCH (22:24)
[2017-04-26] MEDS: chlordiazePOXIDE HCL 25 MG CAPSULE PO SCH ×4 (05:55→22:31)
--- NOTE | 2017-04-26 08:43 | EKG ---
Test Reason : Blood Pressure : / mmHG Vent. Rate : 081 BPM Atrial Rate : 081 BPM P-R Int : 164 ms QRS Dur : 082 ms QT Int : 354 ms P-R-T Axes : 071 045 030 degrees QTc Int : 411 ms NORMAL SINUS RHYTHM NORMAL ECG WHEN COMPARED WITH ECG OF 09-MAR-2016 09:35, NO SIGNIFICANT CHANGE WAS FOUND Confirmed by RAMÓN FONTENOT MD ([id number]) on 04/26/2017 8:43:28 AM Referred By: Confirmed By:RAMÓN FONTNEOT MD
--- NOTE | 2017-04-26 09:51 | PN ---
S CIWA - CIWA Score Nausea/Vomitin Muscle Tremors: 3 Anxiety: 3 Agitation: 2 Paroxysmal Sweats: 1-Minimal Palms Moist Orientation: 0-Oriented Tacttile Disturbances: 1-Very Mild Itch/Numbness Auditory Disturbances: 1-Very Mild Visual Disturbances: 0-None Headache: 2-Mild CIWA-Ar Total Score: 16 BHS Progress Note (SOAP) Subjective: ALERT,IRRITABLE,ANXIOUS,INTERRUPTED SLEEP,TREMOR,NAUSEA Objective: 04/26/17 09:49 Vital Signs Temperature 96.6 F L 04/26/17 09:33 Pulse Rate 82 04/26/17 09:33 Respiratory Rate 20 04/26/17 09:33 Blood Pressure 143/72 04/26/17 09:33 O2 Sat by Pulse Oximetry (%) EKG NSR,NORMAL ECG Laboratory Last Values Urine Color Yellow 04/25/17 18:26 Urine Appearance Clear 04/25/17 18:26 Urine pH 6.0 (5.0-8.0) 04/25/17 18:26 Ur Specific [place] 1.016 (1.001-1.035) 04/25/17 18:26 Urine Protein Negative (NEGATIVE) 04/25/17 18:26 Urine Glucose (UA) Negative (NEGATIVE) 04/25/17 18:26 Urine Ketones Negative (NEGATIVE) 04/25/17 18:26 Urine Blood Negative (NEGATIVE) 04/25/17 18:26 Urine Nitrite Negative (NEGATIVE) 04/25/17 18:26 Urine Bilirubin Negative (NEGATIVE) 04/25/17 18:26 Urine Urobilinogen 4.0 e.u/dl mg/dL (0.2-1.0) 04/25/17 18:26 Ur Leukocyte Esterase Negative (NEGATIVE) 04/25/17 18:26 LABS PENDING Assessment: 04/26/17 09:50 WITHDRAWAL SYMPTOM Plan: CONTINUE DETOX
--- NOTE | 2017-04-26 10:17 | CONSULT ---
[facility] Psychiatric Consult - Data Date of interview: 04/26/17 Admission source: [facility] Identifying data: Pt. 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 This is one of multiple admissions for patient. Pt. admitted to detox for alcohol and crack dependence. Substance Abuse History: Following information confirmed with Mr. Wheeler: - Smoking Cessation. Smoking history: Former smoker. Have you smoked in the past 12 months: No. Aproximately how many cigarettes per day: 0. Cigars Per Day: 0. Hx Chewing Tobacco Use: No. Initiated information on smoking cessation : No. - Substance & Tx. History. Hx Alcohol Use: Yes. Substance Use Type: Alcohol, Cocaine. Hx Substance Use Treatment: Yes ([facility] 03/07/16 - 03/11/16). - Substances Abused. Crack. Route: Smoking. Frequency: Daily. Amount used: $300. Age of first use: 29. Date of Last Use: 04/25/17. Alcohol-brandt/ beer. Route: Oral. Frequency: Daily. Amount used: fifth/1-6 pk. Age of first use: 19. Date of Last Use: 04/25/17 Medical History: Asthma, COPD, hypertension, hypercholesterolemia, Seizures (r/ t ETOH) Psychiatric History: Patient reports three psychatric hospitalizations. Most recent hospitalization was at [facility]. Pt. has also been hospitalized at [facility] psychiatric unit. Diagnosed with MDD. Outpatient care was provided by [place] outpatient program but patient plans on seeing a new psychiatrist at [facility] after completing detox/rehab. Pt. is prescribed celexa 20mg and trazodone( nonadherent to trazodone). Pt. denies h/o suicide attempt. Physical/Sexual Abuse/Trauma History: Denies. Mental Status Exam - Mental Status Exam Alert and Oriented to: Time, Place Cognitive Function: Good Patient Appearance: Well Groomed Mood: Hopeful Affect: Appropriate Patient Behavior: Appropriate, Cooperative Speech Pattern: Appropriate Voice Loudness: Normal Thought Process: Goal Oriented Thought Disorder: Not Present Hallucinations: Denies Suicidal Ideation: Denies Homicidal Ideation: Denies Insight/Judgement: Poor Sleep: Poorly Appetite: Good Muscle strength/Tone: Normal Gait/Station: Normal Psychiatric Findings - Problem List ([place] 1, 2,3) (1) Alcohol dependence with uncomplicated withdrawal Current Visit: Yes Status: Acute (2) Cocaine dependence, uncomplicated Current Visit: Yes Status: Acute (3) MDD (major depressive disorder) Current Visit: Yes Status: Chronic Qualifiers: Major depression episode severity: unspecified Comment: History. (4) Insomnia Current Visit: Yes Status: Acute - Initial Treatment Plan Initial Treatment Plan: Psychoeducation provided. Detoxification in progress. Celexa 20mg po daily +Ambien 5mg qhs prn for insomnia. Pt. refusing to restart trazdone. Benefits and side effects (sleeping for ambien) discussed. Verbal consent given. Will continue to monitor patient.
[2017-04-26 10:23] LABS: HEMATOCRIT 40.4 % (35.4-49); MCH 31.2 pg (25.7-33.7); MCHC 34.7 g/dl (32.0-35.9); MEAN PLT VOLUME 8.9 fl (7.5-11.1); PLATELET COUNT 199 K/MM3 (134-434); RBC 4.49 M/mm3 (4.00-5.60); RDW 14.3 % (11.9-15.9); WHITE BLOOD COUNT 7.1 K/mm3 (4.0-10.0)
[2017-04-26 10:32] LABS: ALBUMIN 3.5 g/dl (3.4-5.0); ANION GAP 12 (8-16); BLOOD UREA NITROGEN 13 mg/dL (7-18); CHLORIDE 106 mmol/L (98-107); CO2 24 mmol/L (21-32); GLUCOSE,RANDOM 138 mg/dL (74-106); POTASSIUM 4.1 mmol/L (3.5-5.1); SODIUM 142 mmol/L (136-145)
[2017-04-26 10:36] LABS: ALK PHOS 61 U/L (45-117); BILIRUBIN,TOTAL 0.7 mg/dL (0.2-1.0); CREATININE 1.1 mg/dL (0.7-1.3); SGOT/AST 20 U/L (15-37); SGPT/ALT 22 U/L (12-78); TOT PROT 7.4 g/dl (6.4-8.2)
[2017-04-26] MEDS: HYDROCHLOROTHIAZIDE 25 MG TABLET (FP) PO SCH (10:36)
[2017-04-26] MEDS: BUDESONIDE/FORMETEROL FUMARATE 80/4.5 mcg INHALER IH SCH ×2 (10:36→22:31)
[2017-04-26] MEDS: PRENATAL VITAMINS W/ FOLIC ACID TABLET (FP) PO SCH (10:36)
[2017-04-26] MEDS ORDERED: NICOTINE POLACRILEX 2 MG GUM BUC PRN (10:39)
[2017-04-26] MEDS: NICOTINE 21 MG/24 HOURS TOPICAL PATCH TD SCH (11:12)
[2017-04-26] MEDS: CITALOPRAM HYDROBROMIDE 20 MG TABLET (FP) PO SCH (11:12)
[2017-04-26] MEDS: ZOLPIDEM TARTRATE 5 MG TABLET PO PRN (22:30)
[2017-04-26] MEDS: ATORVASTATIN CA 20 MG TABLET (FP) PO SCH (22:30)
[2017-04-26] MEDS: THIAMINE HCL 100 MG TABLET (FP) PO SCH (22:31)
[2017-04-27] MEDS: chlordiazePOXIDE HCL 25 MG CAPSULE PO SCH ×3 (06:00→17:12)
[2017-04-27] MEDS: PRENATAL VITAMINS W/ FOLIC ACID TABLET (FP) PO SCH (10:45)
[2017-04-27] MEDS: HYDROCHLOROTHIAZIDE 25 MG TABLET (FP) PO SCH (10:45)
[2017-04-27] MEDS: NICOTINE 21 MG/24 HOURS TOPICAL PATCH TD SCH (10:46)
[2017-04-27] MEDS: CITALOPRAM HYDROBROMIDE 20 MG TABLET (FP) PO SCH (10:46)
[2017-04-27] MEDS: BUDESONIDE/FORMETEROL FUMARATE 80/4.5 mcg INHALER IH SCH ×2 (10:47→22:39)
--- NOTE | 2017-04-27 14:05 | PN ---
S CIWA - CIWA Score Nausea/Vomitin Muscle Tremors: 3 Anxiety: 3 Agitation: 3 Paroxysmal Sweats: 3 Orientation: 0-Oriented Tacttile Disturbances: 0-None Auditory Disturbances: 0-None Visual Disturbances: 0-None Headache: 0-None Present CIWA-Ar Total Score: 14 BHS Progress Note (SOAP) Subjective: shakes sweats sleep disturbance requests cane for ambulation Objective: 04/27/17 14:04 A & O x 3 obese Tremors Vital Signs Temperature 97.5 F L 04/27/17 10:00 Pulse Rate 83 04/27/17 10:00 Respiratory Rate 20 04/27/17 10:00 Blood Pressure 140/81 04/27/17 10:00 O2 Sat by Pulse Oximetry (%) Assessment: 04/27/17 14:04 withdrawal sx Plan: continue detox cane for ambulation
[2017-04-27] MEDS: chlordiazePOXIDE 5 MG CAPSULE PO SCH (22:39)
[2017-04-27] MEDS: ATORVASTATIN CA 20 MG TABLET (FP) PO SCH (22:39)
[2017-04-27] MEDS: THIAMINE HCL 100 MG TABLET (FP) PO SCH (22:39)
[2017-04-27] MEDS: ZOLPIDEM TARTRATE 5 MG TABLET PO PRN (22:43)
[2017-04-28] MEDS: chlordiazePOXIDE 5 MG CAPSULE PO SCH ×3 (05:29→17:58)
[2017-04-28] MEDS: chlordiazePOXIDE HCL 25 MG CAPSULE PO PRN ×2 (08:36→15:26)
[2017-04-28] MEDS: HYDROCHLOROTHIAZIDE 25 MG TABLET (FP) PO SCH (10:55)
[2017-04-28] MEDS: CITALOPRAM HYDROBROMIDE 20 MG TABLET (FP) PO SCH (10:55)
[2017-04-28] MEDS: PRENATAL VITAMINS W/ FOLIC ACID TABLET (FP) PO SCH (10:55)
[2017-04-28] MEDS: BUDESONIDE/FORMETEROL FUMARATE 80/4.5 mcg INHALER IH SCH ×2 (10:55→22:25)
[2017-04-28] MEDS: NICOTINE 21 MG/24 HOURS TOPICAL PATCH TD SCH (10:55)
--- NOTE | 2017-04-28 12:56 | PN ---
BHS Progress Note (SOAP) Subjective: alert oriented x 3 steady gait coherent denies pain, social with peers tolerates food and fluid well Objective: 04/28/17 12:55 Laboratory Last Values WBC 7.1 K/mm3 (4.0-10.0) 04/26/17 05:50 RBC 4.49 M/mm3 (4.00-5.60) 04/26/17 05:50 Hgb 14.0 GM/dL (11.7-16.9) 04/26/17 05:50 Hct 40.4 % (35.4-49) 04/26/17 05:50 MCV 90.0 fl (80-96) 04/26/17 05:50 MCH 31.2 pg (25.7-33.7) 04/26/17 05:50 MCHC 34.7 g/dl (32.0-35.9) 04/26/17 05:50 RDW 14.3 % (11.9-15.9) 04/26/17 05:50 Plt Count 199 K/MM3 (134-434) 04/26/17 05:50 MPV 8.9 fl (7.5-11.1) 04/26/17 05:50 Sodium 142 mmol/L (136-145) 04/26/17 05:50 Potassium 4.1 mmol/L (3.5-5.1) 04/26/17 05:50 Chloride 106 mmol/L (98-107) 04/26/17 05:50 Carbon Dioxide 24 mmol/L (21-32) 04/26/17 05:50 Anion Gap 12 (8-16) 04/26/17 05:50 BUN 13 mg/dL (7-18) 04/26/17 05:50 Creatinine 1.1 mg/dL (0.7-1.3) 04/26/17 05:50 Creat Clearance w eGFR > 60 (>60) 04/26/17 05:50 Random Glucose 138 mg/dL (74-106) H D 04/26/17 05:50 Calcium 9.0 mg/dL (8.5-10.1) 04/26/17 05:50 Total Bilirubin 0.7 mg/dL (0.2-1.0) D 04/26/17 05:50 AST 20 U/L (15-37) 04/26/17 05:50 ALT 22 U/L (12-78) 04/26/17 05:50 Alkaline Phosphatase 61 U/L (45-117) 04/26/17 05:50 Total Protein 7.4 g/dl (6.4-8.2) 04/26/17 05:50 Albumin 3.5 g/dl (3.4-5.0) 04/26/17 05:50 Urine Color Yellow 04/25/17 18:26 Urine Appearance Clear 04/25/17 18:26 Urine pH 6.0 (5.0-8.0) 04/25/17 18:26 Ur Specific [place] 1.016 (1.001-1.035) 04/25/17 18:26 Urine Protein Negative (NEGATIVE) 04/25/17 18:26 Urine Glucose (UA) Negative (NEGATIVE) 04/25/17 18:26 Urine Ketones Negative (NEGATIVE) 04/25/17 18:26 Urine Blood Negative (NEGATIVE) 04/25/17 18:26 Urine Nitrite Negative (NEGATIVE) 04/25/17 18:26 Urine Bilirubin Negative (NEGATIVE) 04/25/17 18:26 Urine Urobilinogen 4.0 e.u/dl mg/dL (0.2-1.0) 04/25/17 18:26 Ur Leukocyte Esterase Negative (NEGATIVE) 04/25/17 18:26 RPR Titer Nonreactive (NONREACTIVE) 04/26/17 05:50 lab noted Vital Signs Temperature 97 F L 04/28/17 10:00 Pulse Rate 86 04/28/17 10:00 Respiratory Rate 18 04/28/17 10:00 Blood Pressure 124/55 04/28/17 10:00 O2 Sat by Pulse Oximetry (%) Assessment: 04/28/17 12:56 mild withdrawal sx Plan: medically supervised detox
[2017-04-28] MEDS: chlordiazePOXIDE HCL 10 MG CAPSULE PO SCH (22:26)
[2017-04-28] MEDS: ATORVASTATIN CA 20 MG TABLET (FP) PO SCH (22:26)
[2017-04-28] MEDS: THIAMINE HCL 100 MG TABLET (FP) PO SCH (22:26)
[2017-04-28] MEDS: ZOLPIDEM TARTRATE 5 MG TABLET PO PRN (22:26)
[2017-04-29] MEDS: chlordiazePOXIDE HCL 10 MG CAPSULE PO SCH ×3 (06:04→17:12)
--- NOTE | 2017-04-29 09:58 | PN ---
S Progress Note (SOAP) Subjective: ALERT,IRRITABLE,ANXIOUS,INTERRUPTED SLEEP,EXPIRATORY WHEEZING Objective: 04/29/17 09:55 Vital Signs Temperature 97.4 F L 04/29/17 06:05 Pulse Rate 68 04/29/17 06:05 Respiratory Rate 19 04/29/17 06:05 Blood Pressure 98/58 04/29/17 06:05 O2 Sat by Pulse Oximetry (%) Assessment: 04/29/17 09:56 WITHDRAWAL SYMPTOM ACUTE EXACERBATION OF ASTHMA Plan: DUONEB NEBULIZER,STARTED ON PREDNISONE 40 MGS PO NOW THEN TAPER OFF,CLOSE MONITORING,HOLD DISCHARGE TODAY
[2017-04-29] MEDS ORDERED: predniSONE 20 MG TABLET (UD) PO ONE (10:00)
[2017-04-29] MEDS: HYDROCHLOROTHIAZIDE 25 MG TABLET (FP) PO SCH (10:35)
[2017-04-29] MEDS: PRENATAL VITAMINS W/ FOLIC ACID TABLET (FP) PO SCH (10:35)
[2017-04-29] MEDS: CITALOPRAM HYDROBROMIDE 20 MG TABLET (FP) PO SCH (10:35)
[2017-04-29] MEDS: BUDESONIDE/FORMETEROL FUMARATE 80/4.5 mcg INHALER IH SCH ×2 (10:36→22:34)
[2017-04-29] MEDS: NICOTINE 21 MG/24 HOURS TOPICAL PATCH TD SCH (10:36)
[2017-04-29] MEDS: ASPIRIN COATED 81 MG TABLET.EC PO SCH (12:30)
[2017-04-29] MEDS: ATORVASTATIN CA 20 MG TABLET (FP) PO SCH (22:34)
[2017-04-29] MEDS: THIAMINE HCL 100 MG TABLET (FP) PO SCH (22:34)
[2017-04-29] MEDS: hydrOXYzine PAMOATE 50 MG CAPSULE (FP) PO PRN (22:35)
[2017-04-30] MEDS: hydrOXYzine PAMOATE 50 MG CAPSULE (FP) PO PRN (05:28)
--- NOTE | 2017-04-30 08:09 | PN ---
S Progress Note (SOAP) Subjective: ALERT,NO COMPLAINT,NO DIFFICULTY IN BREATHING Objective: 04/30/17 08:07 Vital Signs Temperature 97.7 F 04/30/17 06:10 Pulse Rate 74 04/30/17 06:10 Respiratory Rate 18 04/30/17 06:10 Blood Pressure 111/76 04/30/17 06:10 O2 Sat by Pulse Oximetry (%) Assessment: 04/30/17 08:08 DETOX COMPLETED,NO WITHDRAWAL SYMPTOM Plan: DISCHARGE TODAY,FOLLOW UP WITH AFTER CARE PROGRAM ARRANGEMENT
--- NOTE | 2017-04-30 08:15 | DS ---
[facility] Detox Discharge Summary Admission Date: 04/25/17 Discharge Date: 04/30/17 - History Present History: Alcohol Dependence, Cocaine Dependence Additional Comments: FOLLOW UP WITH AFTER CARE PROGRAM [facility] Pertinent Past History: ASTHMA ESSENTIAL HYPERTNSION HYPERLIPIDEMIA OBESITY CHRONIC LOW BACK PAIN AMBULATORY WITH CANE DEPRESSION - Physical Exam Results Vital Signs: Vital Signs Temperature 97.7 F 04/30/17 06:10 Pulse Rate 74 04/30/17 06:10 Respiratory Rate 18 04/30/17 06:10 Blood Pressure 111/76 04/30/17 06:10 O2 Sat by Pulse Oximetry (%) Pertinent Admission Physical Exam Findings: WITHDRAWAL SIGNS AND SYMPTOM Vital Signs Temperature 97.7 F 04/30/17 06:10 Pulse Rate 74 04/30/17 06:10 Respiratory Rate 18 04/30/17 06:10 Blood Pressure 111/76 04/30/17 06:10 O2 Sat by Pulse Oximetry (%) - Treatment Hospital Course: Detox Protocol Followed, Detoxed Safely, Responded well, Discharged Condition Good, Rehab Referral Accepted Patient has Accepted a Rehab Referral to: [facility] - Medication Discharge Medications: Ambulatory Orders Salmeterol/Fluticasone [Advair 250Mcg/50Mcg -] 1 inh PO BID #1 inh 04/10/13 Ibuprofen [Motrin -] 800 mg PO BID PRN 09/05/14 Citalopram Hydrobromide [Celexa -] 20 mg PO DAILY #30 tablet 03/08/16 Albuterol Sulfate Inhaler - [Ventolin HFA Inhaler -] 2 inh IH Q4H PRN #1 inh 01/05 Hydrochlorothiazide [Hctz -] 25 mg PO DAILY #30 tablet 04/28/17 Simvastatin [Zocor -] 20 mg PO HS #30 tablet 04/28/17 - Diagnosis (1) Alcohol dependence with uncomplicated withdrawal Current Visit: Yes Status: Acute (2) Asthma Current Visit: Yes Status: Chronic (3) Chronic back pain Current Visit: Yes Status: Chronic Qualifiers: Back pain location: low back pain Back pain laterality: bilateral Sciatica presence: without sciatica Qualified Code(s): M54.5 - Low back pain; G89.29 - Other chronic pain; G89.29 - Other chronic pain (4) Cocaine dependence, uncomplicated Current Visit: Yes Status: Acute (5) Essential hypertension Current Visit: Yes Status: Chronic (6) Hypercholesterolemia Current Visit: Yes Status: Chronic (7) Obesity Current Visit: Yes Status: Chronic (8) Nicotine dependence Current Visit: No Status: Chronic (9) Use of cane as ambulatory aid Current Visit: No Status: Chronic (10) MDD (major depressive disorder) Current Visit: Yes Status: Chronic Qualifiers: Major depression episode severity: unspecified - AMA Did Patient Leave Against Medical Advice: No
[2017-04-30] MEDS ORDERED: predniSONE 10 MG TABLET (UD) PO ONE (10:00)
[2017-04-30 10:01] VITALS: BP 141/83; PULSE 84; TEMP 97.3
[2017-04-30] MEDS: ASPIRIN COATED 81 MG TABLET.EC PO SCH (10:50)
[2017-04-30] MEDS: PRENATAL VITAMINS W/ FOLIC ACID TABLET (FP) PO SCH (10:50)
[2017-04-30] MEDS: CITALOPRAM HYDROBROMIDE 20 MG TABLET (FP) PO SCH (10:50)
[2017-04-30] MEDS: NICOTINE 21 MG/24 HOURS TOPICAL PATCH TD SCH (10:50)
[2017-04-30] MEDS: BUDESONIDE/FORMETEROL FUMARATE 80/4.5 mcg INHALER IH SCH (10:50)
[2017-04-30] MEDS: HYDROCHLOROTHIAZIDE 25 MG TABLET (FP) PO SCH (10:50)
[2017-05-01] MEDS ORDERED: predniSONE 20 MG TABLET (UD) PO ONE (10:00)
[2017-05-02] MEDS ORDERED: predniSONE 10 MG TABLET (UD) PO ONE (10:00)
[2017-05-03] MEDS ORDERED: predniSONE 5 MG TABLET (UD) PO ONE (10:00)
== END 2017-04-30 11:30 | disposition home or self-care (01) | DRG 774 ==
LOC: YASAS 12:25 → Y6N 17:03
PROVIDERS: ADMIT Internal Medicine; ATTEND Internal Medicine
PROC: HZ2ZZZZ Detoxification Services for Substance Abuse Treatment (ICD-10-PCS; principal; 2017-04-25)
DX: F10.230 Alcohol dependence with withdrawal, uncomplicated (principal); F14.20 Cocaine dependence, uncomplicated; F17.210 Nicotine dependence, cigarettes, uncomplicated; F33.9 Major depressive disorder, recurrent, unspecified; G47.00 Insomnia, unspecified; I10 Essential (primary) hypertension; E78.5 Hyperlipidemia, unspecified; M54.5 Low back pain; G89.29 Other chronic pain; J45.901 Unspecified asthma with (acute) exacerbation; J44.9 Chronic obstructive pulmonary disease, unspecified; R26.2 Difficulty in walking, not elsewhere classified; E66.9 Obesity, unspecified; Z68.36 Body mass index [BMI] 36.0-36.9, adult; Z99.89 Dependence on other enabling machines and devices; Z86.69 Personal history of other diseases of the nervous system and sense organs; Z91.013 Allergy to seafood; Z63.4 Disappearance and death of family member
CPT/HCPCS: 36415; 71046-TC-FY; 80053; 81003; 85027; 86593; 93005; 93010

== ENCOUNTER 2017-07-23 10:19 | Inpatient (IN) | payer OTHER ==
[2017-07-23 11:18] VITALS: BMI 37.5
--- NOTE | 2017-07-23 13:42 | HP ---
CIWA Score - CIWA Score Nausea/Vomitin Muscle Tremors: 3 Anxiety: 3 Agitation: 3 Paroxysmal Sweats: 1-Minimal Palms Moist Orientation: 0-Oriented Tacttile Disturbances: 1-Very Mild Itch/Numbness Auditory Disturbances: 1-Very Mild Visual Disturbances: 0-None Headache: 2-Mild CIWA-Ar Total Score: 17 Admission ROS BHS - HPI Chief Complaint: i need help to stop drinking alcohol and crack Allergies/Adverse Reactions: Allergies Allergy/AdvReac Type Severity Reaction Status Date / Time shellfish derived Allergy Severe Hives Verified 07/23/17 10:53 No Known Drug Allergies Allergy Verified 07/23/17 10:53 BEETS Allergy Severe Hives Uncoded 07/23/17 10:53 History of Present Illness: this 62 years old male with alcohol and cocaine dependence,seeking detox, withdrawal symptom,last detox 04/25/17 to 04/30/17 hypertension,hypercholesterolemia,asthma depression,insomnia longest period of sobriety 9 years nicotine dependence Exam Limitations: No Limitations - Ebola screening Have you traveled outside of the country in the last 21 days: No (N) Have you had contact with anyone from an Ebola affected area: No Have you been sick,other than usual withdrawal symptoms: No Do you have a fever: No - Review of Systems Constitutional: Loss of Appetite, Malaise, Night Sweats, Changes in sleep, Weakness EENT: reports: Nose Congestion Respiratory: reports: No Symptoms reported, Other (asthma) Cardiac: reports: No Symptoms Reported GI: reports: Nausea, Vomiting, Abdominal cramping : reports: No Symptoms Reported Musculoskeletal: reports: Back Pain, Muscle Pain Integumentary: reports: Dryness Neuro: reports: Headache, Tremors Endocrine: reports: No Symptoms Reported Hematology: reports: No Symptoms Reported Psychiatric: reports: No Sypmtoms Reported, Judgement Intact, Mood/Affect Appropiate, Orientated x3, Depressed Patient History - Patient Medical History Hx Anemia: No Hx Asthma: Yes (on albuterol inhaler and advair) Hx Chronic Obstructive Pulmonary Disease (COPD): No Hx Cancer: No Hx Cardiac Disorders: No Hx Congestive Heart Failure: No Hx Hypertension: Yes Hx Hypercholesterolemia: Yes (on zocor) Hx Pacemaker: No HX Cerebrovascular Accident: No Hx Seizures: No Hx Dementia: No Hx Diabetes: No Hx Gastrointestinal Disorders: No Hx Genitourinary Disorders: No Hx Sexually Transmitted Disorders: No Hx Renal Disease (ESRD): No Hx Thyroid Disease: No Hx Human Immunodeficiency Virus (HIV): No (NEGATIVE HX last 03/07) Hx Hepatitis C: No Hx Depression: Yes Hx Suicide Attempt: No Hx Bipolar Disorder: No Hx Schizophrenia: No Other Medical History: no sucidal,no homicidal - Patient Surgical History Past Surgical History: Yes Hx Neurologic Surgery: No Hx Cataract Extraction: No Hx Cardiac Surgery: No Hx Lung Surgery: No Hx Breast Surgery: No Hx Breast Biopsy: No Hx Abdominal Surgery: No Hx Appendectomy: No Hx Cholecystectomy: No Hx Genitourinary Surgery: No Hx Section: No Hx Orthopedic Surgery: Yes (surgery for torn ligament right knee in 2007, left hammer toe 2017) Hx Hysterectomy: No Anesthesia Reaction: No - PPD History Previous Implant?: Yes Documented Results: Positive w/o proof PPD to be Administered?: No - Smoking Cessation Smoking history: Current every day smoker Have you smoked in the past 12 months: No Aproximately how many cigarettes per day: 7 Cigars Per Day: 0 Hx Chewing Tobacco Use: No Initiated information on smoking cessation: Yes 'Breaking Loose' booklet given: 07/23/17 - Substance & Tx. History Hx Alcohol Use: Yes Hx Substance Use: Yes Substance Use Type: Alcohol, Cocaine - Substances Abused Alcohol-beer/cognac Route: Oral Frequency: Daily Amount used: 4-5 (four amanuel)/1-2 pts. Age of first use: 16 Date of Last Use: 07/23/17 Craxk Route: Smoking Frequency: Daily Amount used: $150 Age of first use: 29 Date of Last Use: 07/22/17 Percocet Route: Oral Frequency: 1-3 times last 30 days Amount used: 10 mg. Age of first use: 62 Date of Last Use: 07/23/17 Family Disease History - Family Disease History Family Disease History: Diabetes: Grandparent (HTN), Mother (HTN,LUNG CA.), Heart Disease: Grandparent, Mother Admission Physical Exam BHS - Vital Signs Vital Signs: Vital Signs - 24 hr 07/23/17 11:15 Temperature 98.5 F Pulse Rate 90 Respiratory 18 Rate Blood Pressure 146/93 - Physical General Appearance: Yes: Moderate Distress, Tremorous, Irritable, Sweating, Anxious HEENTM: Yes: Normal ENT Inspection, AUNG, Pharynx Normal Respiratory: Yes: Lungs Clear, Normal Breath Sounds, No Respiratory Distress Neck: Yes: Within Normal Limits, Supple, Trachea in good position Breast: Yes: Within Normal Limits Cardiology: Yes: Within Normal Limits, Regular Rhythm, Regular Rate, S1, S2 Abdominal: Yes: Within Normal Limits, Normal Bowel Sounds, Soft Genitourinary: Yes: Within Normal Limits Back: Yes: Muscle Spasm, Other (low backpin,herniated disc) Musculoskeletal: Yes: full range of Motion, Back pain, Joint Stiffness, Muscle Pain Extremities: Yes: Tremors 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 NML intact, Alert, Motor Strength 5/5 Integumentary: Yes: Dry Lymphatic: Yes: Within Normal Limits - Diagnostic (1) Alcohol dependence with uncomplicated withdrawal Current Visit: No Status: Acute (2) Cocaine dependence, uncomplicated Current Visit: No Status: Acute (3) Asthma Current Visit: No Status: Chronic (4) Chronic back pain Current Visit: No Status: Chronic Qualifiers: Back pain location: low back pain Back pain laterality: bilateral Sciatica presence: without sciatica Qualified Code(s): M54.5 - Low back pain; G89.29 - Other chronic pain (5) Essential hypertension Current Visit: No Status: Chronic (6) Hypercholesterolemia Current Visit: No Status: Chronic (7) MDD (major depressive disorder) Current Visit: No Status: Chronic Qualifiers: Major depression episode severity: unspecified Comment: History. (8) Nicotine dependence Current Visit: No Status: Chronic Cleared for Admission [facility] - Detox or Rehab [facility] Level of Care: Medically Managed Detox Regimen/Protocol: Librium [facility] Breath Alcohol Content Breath Alcohol Content: 0.009 Urine Drug Screen - Results Drug Screen Negative: No Urine Drug Screen Results: KIARA-Cocaine, OXY-Oxycodone
[2017-07-23] MEDS ORDERED: MENTHOL/PHENOL 1 EACH UD MM PRN (13:52)
[2017-07-23] MEDS ORDERED: P-EPHED 60MG/TRIPROLIDI 2.5MG TABLET PO PRN (13:52)
[2017-07-23] MEDS ORDERED: ACETAMINOPHEN 325 MG TABLET (FP) PO PRN (13:52)
[2017-07-23] MEDS ORDERED: chlordiazePOXIDE HCL 25 MG CAPSULE PO PRN (13:52)
[2017-07-23] MEDS ORDERED: guaiFENesin/D-METHORPHAN HB 10 ML UNIT-DOSE CUPS PO PRN (13:52)
[2017-07-23] MEDS ORDERED: hydrOXYzine PAMOATE 50 MG CAPSULE (FP) PO PRN (13:52)
[2017-07-23] MEDS ORDERED: MAGNESIUM HYDROX 2400MG/30ML ORAL SUSPENSION 30 ML CUP PO PRN (13:52)
[2017-07-23] MEDS ORDERED: LOPERAMIDE HCL 2 MG CAPSULE PO PRN (13:52)
[2017-07-23] MEDS ORDERED: MAGNESIUM CITRATE 300 ML BOTTLE PO PRN (13:52)
[2017-07-23] MEDS ORDERED: IBUPROFEN 400 MG TABLET (FP) PO PRN (13:52)
[2017-07-23] MEDS ORDERED: MAG HYDROX/AL HYDROX/SIMETH 30 ML UNIT-DOSE CUP PO PRN (13:52)
[2017-07-23] MEDS ORDERED: ALBUTEROL SO4 18 GM HFA INHALER IH PRN (13:55)
[2017-07-23] MEDS ORDERED: chlordiazePOXIDE HCL 25 MG CAPSULE PO ONE (14:45)
[2017-07-23] MEDS: NICOTINE 21 MG/24 HOURS TOPICAL PATCH TD SCH (15:18)
[2017-07-23] MEDS: chlordiazePOXIDE HCL 25 MG CAPSULE PO SCH ×2 (17:18→22:05)
[2017-07-23] MEDS ORDERED: PATIENT'S OWN MEDICATION (NON-FORMULARY) (Salmeterol/Fluticasone [Advair 250mcg/50mcg -] 1 PO SCH (22:00)
[2017-07-23] MEDS ORDERED: MELATONIN 5 MG TABLETS PO PRN (22:00)
[2017-07-23] MEDS: BUDESONIDE/FORMETEROL FUMARATE 80/4.5 mcg INHALER IH SCH (22:04)
[2017-07-23] MEDS: ATORVASTATIN CA 80 MG TABLET (FP) PO SCH (22:04)
[2017-07-23] MEDS: THIAMINE HCL 100 MG TABLET (FP) PO SCH (22:04)
[2017-07-24] MEDS: chlordiazePOXIDE HCL 25 MG CAPSULE PO SCH ×4 (05:19→22:12)
[2017-07-24 10:18] LABS: HEMATOCRIT 38.4 % (35.4-49); HEMOGLOBIN 13.2 GM/dL (11.7-16.9); MCH 30.3 pg (25.7-33.7); MCHC 34.2 g/dl (32.0-35.9); MEAN CELL VOLUME 88.4 fl (80-96); MEAN PLT VOLUME 9.2 fl (7.5-11.1); PLATELET COUNT 226 K/MM3 (134-434); RBC 4.35 M/mm3 (4.00-5.60); RDW 13.6 % (11.9-15.9); WHITE BLOOD COUNT 5.9 K/mm3 (4.0-10.0)
[2017-07-24 10:19] LABS: URINE APPEARANCE CLEAR; URINE BILIRUBIN NEGATIVE (<2.0 mg/dL); URINE BLOOD NEGATIVE (NEGATIVE); URINE COLOR LTYELLOW; URINE GLUCOSE (UA) NEGATIVE (NEGATIVE); URINE KETONE NEGATIVE (NEGATIVE); URINE LEUK ESTERASE NEGATIVE (NEGATIVE); URINE NITRITE NEGATIVE (NEGATIVE); URINE PROTEIN NEGATIVE (NEGATIVE)
[2017-07-24] MEDS: metoPROLOL SUCCINATE 25 MG TAB.SR.24H (FP) PO SCH (10:30)
[2017-07-24] MEDS: BUDESONIDE/FORMETEROL FUMARATE 80/4.5 mcg INHALER IH SCH ×2 (10:30→22:12)
[2017-07-24] MEDS: NICOTINE 21 MG/24 HOURS TOPICAL PATCH TD SCH (10:30)
[2017-07-24] MEDS: PRENATAL VITAMINS W/ FOLIC ACID TABLET (FP) PO SCH (10:30)
[2017-07-24 10:54] LABS: CHLORIDE 106 mmol/L (98-107); POTASSIUM 3.9 mmol/L (3.5-5.1); SODIUM 140 mmol/L (136-145)
[2017-07-24 11:17] LABS: ALBUMIN 3.6 g/dl (3.4-5.0); ALK PHOS 53 U/L (45-117); ANION GAP 9 (8-16); BILIRUBIN,TOTAL 0.3 mg/dL (0.2-1.0); BLOOD UREA NITROGEN 12 mg/dL (7-18); CALCIUM 8.9 mg/dL (8.5-10.1); CO2 25 mmol/L (21-32); CREATININE 1.1 mg/dL (0.7-1.3); GLUCOSE,RANDOM 99 mg/dL (74-106); SGOT/AST 19 U/L (15-37); SGPT/ALT 25 U/L (12-78); TOT PROT 7.3 g/dl (6.4-8.2)
--- NOTE | 2017-07-24 11:54 | EKG ---
Test Reason : Blood Pressure : / mmHG Vent. Rate : 077 BPM Atrial Rate : 077 BPM P-R Int : 172 ms QRS Dur : 084 ms QT Int : 358 ms P-R-T Axes : 074 048 036 degrees QTc Int : 405 ms NORMAL SINUS RHYTHM NORMAL ECG WHEN COMPARED WITH ECG OF 25-APR-2017 18:32, NO SIGNIFICANT CHANGE WAS FOUND Confirmed by RAMÓN FONTENOT MD ([id number]) on 07/24/2017 11:53:40 AM Referred By: Confirmed By:RAMÓN FONTENOT MD
--- NOTE | 2017-07-24 12:30 | CONSULT ---
[facility] Psychiatric Consult - Data Date of interview: 07/24/17 Admission source: [facility] Identifying data: Readmission to [facility] for this 62 y/o AA male seeking detox treatment on for alcohol and cocaine (crack) dependence.Patient is ,a father of eight,domiciled and currently employed at [email or web address]. Substance Abuse History: Confirmed by patient in this interview.Smoking history : Current every day smoker. Have you smoked in the past 12 months: No. Aproximately how many cigarettes per day: 7. Cigars Per Day: 0. Hx Chewing Tobacco Use: No. Initiated information on smoking cessation: Yes. 'Breaking Loose' booklet given: 07/23/17. - Substance & Tx. History. Hx Alcohol Use: Yes. Hx Substance Use: Yes. Substance Use Type: Alcohol, Cocaine. - Substances Abused. Alcohol-beer/cognac. Route: Oral. Frequency: Daily. Amount used: 4-5 (four amanuel)/1-2 pts. Age of first use: 16. Date of Last Use: 07/23/17. Craxk. Route: Smoking. Frequency: Daily. Amount used: $150. Age of first use: 29. Date of Last Use: 07/22/17. Percocet. Route: Oral. Frequency: 1-3 times last 30 days. Amount used: 10 mg. Age of first use: 62. Date of Last Use: 07/23/17 Medical History: Multiple medical co-morbidities : dyslipidemia,COPD,cyst in left hand,bronchial asthma,herniated discs,chronic lower back pain,hypertension and a history of orthosurgery (torn ligament in right knee). Psychiatric History: History of 2-3 psychiatric hospitalizations.Patient endorses the diagnosis of MDD.Prescribed celexa 20 mg/day.Mr Wheeler is currently followed at the [facility] clinic in [facility].Patient denies history of suicide attempts. Physical/Sexual Abuse/Trauma History: Traumatized by the experience of incarceration (2008). Additional Comment: Urine Drug Screen Results: KIARA-Cocaine, OXY-Oxycodone.Noted. Mental Status Exam - Mental Status Exam Alert and Oriented to: Time, Place, Person Cognitive Function: Good Patient Appearance: Well Groomed (obese) Mood: Hopeful, Euthymic Affect: Appropriate, Normal Range Patient Behavior: Fatigued, Appropriate, Cooperative Speech Pattern: Clear, Appropriate Voice Loudness: Normal Thought Process: Intact, Goal Oriented Thought Disorder: Not Present Hallucinations: Denies Suicidal Ideation: Denies Homicidal Ideation: Denies Insight/Judgement: Fair Sleep: Poorly, Difficulty falling asleep Appetite: Good Muscle strength/Tone: Normal Gait/Station: Normal Psychiatric Findings - Problem List ([place] 1, 2,3) (1) Alcohol dependence with uncomplicated withdrawal Current Visit: Yes Status: Acute (2) Cocaine dependence, uncomplicated Current Visit: Yes Status: Acute (3) Nicotine dependence Current Visit: Yes Status: Chronic (4) MDD (major depressive disorder) Current Visit: Yes Status: Chronic Qualifiers: Major depression episode severity: unspecified Comment: History. (5) Insomnia Current Visit: Yes Status: Acute - Initial Treatment Plan Initial Treatment Plan: Psychoeducation.Sleep hygiene.Detoxification in progress.Ambien 10 mg po hs prn.Patient is made aware of the risk of parasomnias.Agrees to this careplan.Observation.
--- NOTE | 2017-07-24 14:36 | PN ---
S CIWA - CIWA Score Nausea/Vomitin-No Nausea/No Vomiting Muscle Tremors: 4-Moderate,w/Arms Extend Anxiety: 4-Mod. Anxious/Guarded Agitation: 4-Moderately Restless Paroxysmal Sweats: 1-Minimal Palms Moist Orientation: 0-Oriented Tacttile Disturbances: 0-None Auditory Disturbances: 0-None Visual Disturbances: 0-None Headache: 0-None Present CIWA-Ar Total Score: 13 BHS Progress Note (SOAP) Subjective: TREMORS,SWEATS,NO BM X 2-3 DAYS. PT DECLINED MOM STATING "IT DOES NOT WORK FOR ME". PT WANTS [facility]. Objective: 07/24/17 14:34 Vital Signs 07/24/17 07/24/17 07/24/17 06:43 09:23 13:57 Temperature 96.7 F L 97.1 F L 95.7 F L Pulse Rate 70 80 78 Respiratory 18 20 18 Rate Blood Pressure 106/66 123/77 103/66 Laboratory Tests 07/24/17 07/24/17 07/24/17 06:00 06:00 06:00 WBC 5.9 RBC 4.35 Hgb 13.2 Hct 38.4 MCV 88.4 MCH 30.3 MCHC 34.2 RDW 13.6 Plt Count 226 MPV 9.2 Sodium 140 Potassium 3.9 Chloride 106 Carbon Dioxide 25 Anion Gap 9 BUN 12 Creatinine 1.1 Creat Clearance w eGFR > 60 Random Glucose 99 D Calcium 8.9 Total Bilirubin 0.3 D AST 19 ALT 25 Alkaline Phosphatase 53 Total Protein 7.3 Albumin 3.6 Urine Color Urine Appearance Urine pH Ur Specific [place] Urine Protein Urine Glucose (UA) Urine Ketones Urine Blood Urine Nitrite Urine Bilirubin Urine Urobilinogen Ur Leukocyte Esterase RPR Titer Nonreactive 07/24/17 08:00 WBC RBC Hgb Hct MCV MCH MCHC RDW Plt Count MPV Sodium Potassium Chloride Carbon Dioxide Anion Gap BUN Creatinine Creat Clearance w eGFR Random Glucose Calcium Total Bilirubin AST ALT Alkaline Phosphatase Total Protein Albumin Urine Color Ltyellow Urine Appearance Clear Urine pH 5.0 Ur Specific [place] 1.020 Urine Protein Negative Urine Glucose (UA) Negative Urine Ketones Negative Urine Blood Negative Urine Nitrite Negative Urine Bilirubin Negative Urine Urobilinogen 2.0 Ur Leukocyte Esterase Negative RPR Titer Assessment: 07/24/17 14:35 WITHDRAWAL SX Plan: CONTINUE DETOX [facility] DIRECTED.
[2017-07-24] MEDS: ATORVASTATIN CA 80 MG TABLET (FP) PO SCH (22:12)
[2017-07-24] MEDS: THIAMINE HCL 100 MG TABLET (FP) PO SCH (22:12)
[2017-07-24] MEDS: ZOLPIDEM TARTRATE 10 MG TABLET (PARK CARE ONLY) PO PRN (22:14)
[2017-07-25] MEDS: chlordiazePOXIDE 5 MG CAPSULE PO SCH ×3 (05:43→17:26)
[2017-07-25] MEDS ORDERED: CITALOPRAM HYDROBROMIDE 20 MG TABLET (FP) PO SCH (10:00)
--- NOTE | 2017-07-25 10:25 | PN ---
S CIWA - CIWA Score Nausea/Vomitin-No Nausea/No Vomiting Muscle Tremors: 3 Anxiety: 4-Mod. Anxious/Guarded Agitation: 2 Paroxysmal Sweats: 1-Minimal Palms Moist Orientation: 0-Oriented Tacttile Disturbances: 0-None Auditory Disturbances: 0-None Visual Disturbances: 0-None Headache: 0-None Present CIWA-Ar Total Score: 10 BHS Progress Note (SOAP) Subjective: DECREASED ANXIETY,TREMORS SWEATS. PT IS OOB AMBULATING ON [place] WITH STEADY GAIT. ALERT O X 3. PT MET WITH HIS COUNSELOR TODAY READY FOR AFTERCARE AND HE IS SCHEDULED FOR SOC ANALYST TO [facility] IN THE MORNING. PT REPORTS HIS PRIMARY CARE IS WITH DR. TI ONEIL AT [address] [place] [address]. Objective: 07/25/17 15:01 Vital Signs 07/25/17 07/25/17 09:56 14:44 Temperature 97.1 F L 96 F L Pulse Rate 77 76 Respiratory 18 18 Rate Blood Pressure 110/71 119/79 Laboratory Tests 07/23/17 07/24/17 07/24/17 15:00 06:00 06:00 WBC 5.9 RBC 4.35 Hgb 13.2 Hct 38.4 MCV 88.4 MCH 30.3 MCHC 34.2 RDW 13.6 Plt Count 226 MPV 9.2 Sodium 140 Potassium 3.9 Chloride 106 Carbon Dioxide 25 Anion Gap 9 BUN 12 Creatinine 1.1 Creat Clearance w eGFR > 60 Random Glucose 99 D Calcium 8.9 Total Bilirubin 0.3 D AST 19 ALT 25 Alkaline Phosphatase 53 Total Protein 7.3 Albumin 3.6 Urine Color Urine Appearance Urine pH Ur Specific [place] Urine Protein Urine Glucose (UA) Urine Ketones Urine Blood Urine Nitrite Urine Bilirubin Urine Urobilinogen Ur Leukocyte Esterase RPR Titer HIV 1&2 Antibody Screen Negative HIV P24 Antigen Negative 07/24/17 07/24/17 06:00 08:00 WBC RBC Hgb Hct MCV MCH MCHC RDW Plt Count MPV Sodium Potassium Chloride Carbon Dioxide Anion Gap BUN Creatinine Creat Clearance w eGFR Random Glucose Calcium Total Bilirubin AST ALT Alkaline Phosphatase Total Protein Albumin Urine Color Ltyellow Urine Appearance Clear Urine pH 5.0 Ur Specific [place] 1.020 Urine Protein Negative Urine Glucose (UA) Negative Urine Ketones Negative Urine Blood Negative Urine Nitrite Negative Urine Bilirubin Negative Urine Urobilinogen 2.0 Ur Leukocyte Esterase Negative RPR Titer Nonreactive HIV 1&2 Antibody Screen HIV P24 Antigen Assessment: 07/25/17 15:01 DECREASED WITHDRAWAL SX Plan: CONTINUE DETOX
[2017-07-25] MEDS: PRENATAL VITAMINS W/ FOLIC ACID TABLET (FP) PO SCH (10:35)
[2017-07-25] MEDS: BUDESONIDE/FORMETEROL FUMARATE 80/4.5 mcg INHALER IH SCH ×2 (10:35→22:07)
[2017-07-25] MEDS: metoPROLOL SUCCINATE 25 MG TAB.SR.24H (FP) PO SCH (10:37)
[2017-07-25] MEDS: NICOTINE 21 MG/24 HOURS TOPICAL PATCH TD SCH (10:37)
[2017-07-25] MEDS ORDERED: chlordiazePOXIDE 5 MG CAPSULE PO SCH (17:00)
[2017-07-25] MEDS: ATORVASTATIN CA 80 MG TABLET (FP) PO SCH (22:07)
[2017-07-25] MEDS: THIAMINE HCL 100 MG TABLET (FP) PO SCH (22:07)
[2017-07-25] MEDS: chlordiazePOXIDE HCL 10 MG CAPSULE PO SCH (22:07)
[2017-07-25] MEDS: ZOLPIDEM TARTRATE 10 MG TABLET (PARK CARE ONLY) PO PRN (22:09)
[2017-07-26] MEDS: chlordiazePOXIDE HCL 10 MG CAPSULE PO SCH (05:18)
[2017-07-26 10:06] VITALS: BP 119/72; PULSE 83; TEMP 97.3
--- NOTE | 2017-07-26 10:52 | PN ---
BHS Progress Note (SOAP) Subjective: DETOX COMPLETED. ALERT O X 3. NAD. PT REFERRED TO REHAB TODAY AT [facility], [place], [place]. PT HAS A PRIMARY CARE PROVIDER DR. TI ONEIL AT [address] [place] [address]. PT REPORTS HE HAS MEDS AT HOME Objective: 07/26/17 10:51 Vital Signs 07/26/17 07/26/17 07/26/17 03:30 06:35 10:02 Temperature 98.0 F 97.3 F L Pulse Rate 62 83 Respiratory 18 18 20 Rate Blood Pressure 108/62 119/72 Laboratory Tests 07/23/17 07/24/17 07/24/17 15:00 06:00 06:00 WBC 5.9 RBC 4.35 Hgb 13.2 Hct 38.4 MCV 88.4 MCH 30.3 MCHC 34.2 RDW 13.6 Plt Count 226 MPV 9.2 Sodium 140 Potassium 3.9 Chloride 106 Carbon Dioxide 25 Anion Gap 9 BUN 12 Creatinine 1.1 Creat Clearance w eGFR > 60 Random Glucose 99 D Calcium 8.9 Total Bilirubin 0.3 D AST 19 ALT 25 Alkaline Phosphatase 53 Total Protein 7.3 Albumin 3.6 Urine Color Urine Appearance Urine pH Ur Specific [place] Urine Protein Urine Glucose (UA) Urine Ketones Urine Blood Urine Nitrite Urine Bilirubin Urine Urobilinogen Ur Leukocyte Esterase RPR Titer HIV 1&2 Antibody Screen Negative HIV P24 Antigen Negative 07/24/17 07/24/17 06:00 08:00 WBC RBC Hgb Hct MCV MCH MCHC RDW Plt Count MPV Sodium Potassium Chloride Carbon Dioxide Anion Gap BUN Creatinine Creat Clearance w eGFR Random Glucose Calcium Total Bilirubin AST ALT Alkaline Phosphatase Total Protein Albumin Urine Color Ltyellow Urine Appearance Clear Urine pH 5.0 Ur Specific [place] 1.020 Urine Protein Negative Urine Glucose (UA) Negative Urine Ketones Negative Urine Blood Negative Urine Nitrite Negative Urine Bilirubin Negative Urine Urobilinogen 2.0 Ur Leukocyte Esterase Negative RPR Titer Nonreactive HIV 1&2 Antibody Screen HIV P24 Antigen Assessment: 07/26/17 10:51 MEDICALLY STABLE Plan: D/C PT TODAY
--- NOTE | 2017-07-26 10:56 | DS ---
[facility] Detox Discharge Summary Admission Date: 07/23/17 Discharge Date: 07/26/17 - History Present History: Alcohol Dependence, Cocaine Dependence Additional Comments: DETOX COMPLETED. ALERT O X 3. NAD. FOLLOW UP WITH PMD DR. TI ONEIL AT [address] [place] [address] FOR MEDICAL MANAGEMENT NEEDED POST REHAB. Pertinent Past History: PLEASE SEE DX BELOW - Physical Exam Results Vital Signs: Vital Signs Temperature 97.3 F L 07/26/17 10:02 Pulse Rate 83 07/26/17 10:02 Respiratory Rate 20 07/26/17 10:02 Blood Pressure 119/72 07/26/17 10:02 O2 Sat by Pulse Oximetry (%) Pertinent Admission Physical Exam Findings: WITHDRAWAL SX Laboratory Tests 07/23/17 07/24/17 07/24/17 15:00 06:00 06:00 WBC 5.9 RBC 4.35 Hgb 13.2 Hct 38.4 MCV 88.4 MCH 30.3 MCHC 34.2 RDW 13.6 Plt Count 226 MPV 9.2 Sodium 140 Potassium 3.9 Chloride 106 Carbon Dioxide 25 Anion Gap 9 BUN 12 Creatinine 1.1 Creat Clearance w eGFR > 60 Random Glucose 99 D Calcium 8.9 Total Bilirubin 0.3 D AST 19 ALT 25 Alkaline Phosphatase 53 Total Protein 7.3 Albumin 3.6 Urine Color Urine Appearance Urine pH Ur Specific [place] Urine Protein Urine Glucose (UA) Urine Ketones Urine Blood Urine Nitrite Urine Bilirubin Urine Urobilinogen Ur Leukocyte Esterase RPR Titer HIV 1&2 Antibody Screen Negative HIV P24 Antigen Negative 07/24/17 07/24/17 06:00 08:00 WBC RBC Hgb Hct MCV MCH MCHC RDW Plt Count MPV Sodium Potassium Chloride Carbon Dioxide Anion Gap BUN Creatinine Creat Clearance w eGFR Random Glucose Calcium Total Bilirubin AST ALT Alkaline Phosphatase Total Protein Albumin Urine Color Ltyellow Urine Appearance Clear Urine pH 5.0 Ur Specific [place] 1.020 Urine Protein Negative Urine Glucose (UA) Negative Urine Ketones Negative Urine Blood Negative Urine Nitrite Negative Urine Bilirubin Negative Urine Urobilinogen 2.0 Ur Leukocyte Esterase Negative RPR Titer Nonreactive HIV 1&2 Antibody Screen HIV P24 Antigen - Treatment Hospital Course: Detox Protocol Followed, Detoxed Safely, Responded well, Discharged Condition Good, Rehab Referral Accepted Patient has Accepted a Rehab Referral to: [facility] - Medication Discharge Medications: Ambulatory Orders Salmeterol/Fluticasone [Advair 250Mcg/50Mcg -] 1 inh PO BID #1 inh 04/10/13 Ibuprofen [Motrin -] 800 mg PO BID PRN 09/05/14 Citalopram Hydrobromide [Celexa -] 20 mg PO DAILY #30 tablet 03/08/16 Albuterol Sulfate Inhaler - [Ventolin HFA Inhaler -] 2 puff IH Q4H PRN #1 inhaler 04/30/17 Budesonide/Formeterol Fumarate [SYMBICORT 80/4.5mcg -] 2 puff IH BID #1 inhaler 04/30/17 Atorvastatin Ca [Lipitor] 80 mg PO HS 07/23/17 Chlorthalidone 25 mg PO DAILY 07/23/17 Metoprolol Succinate [Toprol XL -] 25 mg PO DAILY 07/23/17 - Diagnosis (1) Alcohol dependence with uncomplicated withdrawal Current Visit: Yes Status: Acute (2) Cocaine dependence, uncomplicated Current Visit: Yes Status: Acute (3) Asthma Current Visit: Yes Status: Chronic (4) Chronic back pain Current Visit: Yes Status: Chronic Qualifiers: Back pain location: low back pain Back pain laterality: bilateral Sciatica presence: without sciatica Qualified Code(s): M54.5 - Low back pain; G89.29 - Other chronic pain (5) Essential hypertension Current Visit: Yes Status: Chronic (6) Hypercholesterolemia Current Visit: Yes Status: Chronic (7) Obesity Current Visit: Yes Status: Chronic (8) Nicotine dependence Current Visit: Yes Status: Acute Qualifiers: Nicotine product type: cigarettes Substance use status: in withdrawal Qualified Code(s): F17.213 - Nicotine dependence, cigarettes, with withdrawal - AMA Did Patient Leave Against Medical Advice: No
[2017-07-26] MEDS ORDERED: chlordiazePOXIDE HCL 10 MG CAPSULE PO SCH (17:00)
== END 2017-07-26 09:22 | disposition home or self-care (01) | DRG 774 ==
LOC: YASAS 10:19 → Y3N 14:00
PROVIDERS: ADMIT Surgery; ATTEND Surgery
PROC: HZ2ZZZZ Detoxification Services for Substance Abuse Treatment (ICD-10-PCS; principal; 2017-07-23)
DX: F10.230 Alcohol dependence with withdrawal, uncomplicated (principal); F14.20 Cocaine dependence, uncomplicated; F17.213 Nicotine dependence, cigarettes, with withdrawal; F33.9 Major depressive disorder, recurrent, unspecified; I10 Essential (primary) hypertension; J45.909 Unspecified asthma, uncomplicated; M54.5 Low back pain; G89.29 Other chronic pain; E78.5 Hyperlipidemia, unspecified; E66.9 Obesity, unspecified; Z68.37 Body mass index [BMI] 37.0-37.9, adult; G47.00 Insomnia, unspecified; Z91.013 Allergy to seafood
CPT/HCPCS: 36415; 80053; 81003; 85027; 86593; 87389; 93005; 93010

== ENCOUNTER 2018-11-17 10:18 | Inpatient (IN) | payer OTHER ==
[2018-11-17 11:02] VITALS: BMI 36.7
--- NOTE | 2018-11-17 11:58 | HP ---
COWS - Scale Resting Pulse: 1= [place] 81-100 Sweatin= Chills/Flushing Restless Observation: 3= Extraneous Movement Pupil Size: 1= Pupils >than Normal Bone or Joint Aches: 2= Severe Diffuse Aches Runny Nose/ Eye Tearin= Runny Nose/Eyes GI Upset > 30mins: 1= Stomach Cramp Tremor Observation: 1= Tremor [place], Not Seen Yawning Observation: 1= 1-2x During Session Anxiety or Irritability: 2=Irritable/Anxious Goose Flesh Skin: 0=Smooth Skin COWS Score: 15 CIWA Score Nausea/Vomitin-No Nausea/No Vomiting Muscle Tremors: 3 Anxiety: 3 Agitation: 2 Paroxysmal Sweats: 2 Orientation: 0-Oriented Tacttile Disturbances: 0-None Auditory Disturbances: 0-None Visual Disturbances: 0-None Headache: 5-Severe CIWA-Ar Total Score: 15 - Admission Criteria OASAS Guidelines: Admission for Medically Managed Detox: Requires at least one of the followin. CIWA greater than 12 2. Seizures within the past 24 hours 3. Delirium tremens within the past 24 hours 4. Hallucinations within the past 24 hours 5. Acute intervention needed for co occurring medical disorder 6. Acute intervention needed for co occurring psychiatric disorder 7. Severe withdrawal that cannot be handled at a lower level of care (continued vomiting, continued diarrhea, abnormal vital signs) requiring intravenous medication and/or fluids 8. Admitting History and Physical - Primary Care Physician PCP: Nestor Frank - Admission Chief Complaint: " I want help to get detoxed from alcohol, crack and now oxycodone." History of Present Illness: 63 year old black male with history of alcohol dependence, crack abuse, and new oxycodone use disorder. He relapsed few years ago. Prior to that he was abstinent for 9 years. He has had blackouts and last one was 2 weeks ago. He had seizures in the past year, last one was at the end of September 2018. He is asking for help because he cannot stop on his own. He wishes to detox and will remain for rehab as well. - Past Medical History Cardiovascular: Yes: HTN, Other (Hyperlipidemia) Pulmonary: Yes: Asthma Psych: Yes: Depression - Past Surgical History Additional Past Surgical History: right patellar repair thisyear, left hand surgery 12/2017 thoracic back surgery - Advance Directives Advance Directives: No: Living Will, Health Care Proxy, DNR - Smoking History Smoking history: Current every day smoker Have you smoked in the past 12 months: No Aproximately how many cigarettes per day: 7 - Alcohol/Substance Use Hx Alcohol Use: Yes Number of Drinks Daily: 3 History of Substance Use: reports: Cocaine Date of Last Use: 11/17/18 - Social History Usual Living Arrangement: Yes: With Spouse Do you think of yourself as: Straight/Heterosexual ADL: Independent 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 Chief Complaint: " I want help to stop using alcohol, crack and oxycodone." Allergies/Adverse Reactions: Allergies Allergy/AdvReac Type Severity Reaction Status Date / Time shellfish derived Allergy Severe Hives Verified 11/17/18 10:53 No Known Drug Allergies Allergy Verified 11/17/18 10:53 BEETS Allergy Severe Hives Uncoded 11/17/18 10:53 History of Present Illness: 63 year old black male with history of alcohol dependence, crack abuse, and new oxycodone use disorder. He relapsed few years ago. Prior to that he was abstinent for 9 years. He has had blackouts and last one was 2 weeks ago. He had seizures in the past year, last one was at the end of September 2018. He is asking for help because he cannot stop on his own. He wishes to detox and will remain for rehab as well. PMH: HTN, Asthma, Hyperlipidemia Exam Limitations: No Limitations - Ebola screening Have you traveled outside of the country in the last 21 days: No Have you had contact with anyone from an Ebola affected area: No Have you been sick,other than usual withdrawal symptoms: No Do you have a fever: No - Review of Systems Constitutional: Chills EENT: reports: No Symptoms Reported Respiratory: reports: Cough, Wheezing Cardiac: reports: Lightheadedness GI: reports: Nausea, Abdominal cramping : reports: No Symptoms Reported Musculoskeletal: reports: No Symptoms Reported Integumentary: reports: No Symptoms Reported Neuro: reports: No Symptoms reported Endocrine: reports: Intolerance to Cold Hematology: reports: No Symptoms Reported Psychiatric: reports: No Sypmtoms Reported, Judgement Intact, Mood/Affect Appropiate, Orientated x3 Other Systems: Reviewed and Negative Patient History - Patient Medical History Hx Anemia: No Hx Asthma: Yes (on albuterol inhaler and advair) Hx Chronic Obstructive Pulmonary Disease (COPD): No Hx Cancer: No Hx Cardiac Disorders: No Hx Congestive Heart Failure: No Hx Hypertension: Yes Hx Hypercholesterolemia: Yes (on zocor) Hx Pacemaker: No HX Cerebrovascular Accident: No Hx Seizures: No Hx Dementia: No Hx Diabetes: No Hx Gastrointestinal Disorders: No Hx Genitourinary Disorders: No Hx Sexually Transmitted Disorders: No Hx Renal Disease (ESRD): No Hx Thyroid Disease: No Hx Human Immunodeficiency Virus (HIV): No (NEGATIVE HX last 03/07) Hx Hepatitis C: No Hx Depression: Yes Hx Suicide Attempt: No Hx Bipolar Disorder: No Hx Schizophrenia: No - Patient Surgical History Past Surgical History: Yes Hx Neurologic Surgery: No Hx Cataract Extraction: No Hx Cardiac Surgery: No Hx Lung Surgery: No Hx Breast Surgery: No Hx Breast Biopsy: No Hx Abdominal Surgery: No Hx Appendectomy: No Hx Cholecystectomy: No Hx Genitourinary Surgery: No Hx Section: No Hx Orthopedic Surgery: Yes (surgery for torn ligament right knee in 2007, left hammer toe 2017) Hx Hysterectomy: No Anesthesia Reaction: No - PPD History Previous Implant?: Yes (positive and treated ) Documented Results: Positive w/o proof PPD to be Administered?: No - Smoking Cessation Smoking history: Current every day smoker Have you smoked in the past 12 months: No Aproximately how many cigarettes per day: 7 Cigars Per Day: 0 Hx Chewing Tobacco Use: No Initiated information on smoking cessation: Yes 'Breaking Loose' booklet given: 11/17/18 - Substance & Tx. History Hx Alcohol Use: Yes (1/2 pint daily) Hx Substance Use: Yes Substance Use Type: Alcohol, Cocaine, Opiates - Substances abused Alcohol Substance route: Oral Frequency: Daily Amount used: 5th of Yulia,5-6 qt Beer Age of first use: 16 Date of last use: 11/17/18 Crack Other (specify): Crack Substance route: Smoking Frequency: Daily Amount used: $200- $300/day Age of first use: 34 Date of last use: 11/17/18 Oxycontin Other (specify): OXYCONTIN Substance route: Oral Frequency: 1-3 times last 30 days Amount used: 30MG Age of first use: 62 Date of last use: 11/16/18 Other Other (specify): oxycodone Substance route: Oral Frequency: 1-3 times last 30 days Amount used: 30 mg Age of first use: 63 Date of last use: 08/15/18 Admission Physical Exam S - Vital Signs Vital Signs: Vital Signs - 24 hr 11/17/18 10:49 Temperature 97.5 F L Pulse Rate 86 Respiratory 18 Rate Blood Pressure 117/75 - Physical General Appearance: Yes: Moderate Distress HEENTM: Yes: EOMI, Hearing grossly Normal, Normal ENT Inspection, Normocephalic , Normal Voice, AUNG Respiratory: Yes: Chest Non-Tender, Lungs Clear, Normal Breath Sounds, No Respiratory Distress, No Accessory Muscle Use Neck: Yes: No masses,lesions,Nodules, Supple, Trachea in good position Breast: Yes: Within Normal Limits Cardiology: Yes: Regular Rhythm, Regular Rate, S1, S2 Abdominal: Yes: Non Tender, Soft, Increased Bowel Sounds, Protuberent. No: Rebound, Tenderness Genitourinary: Yes: Within Normal Limits Back: Yes: Within Normal Limits, Normal Inspection Musculoskeletal: Yes: Within Normal Limits, full range of Motion, Gait Steady Extremities: Yes: Normal Capillary Refill, Normal Inspection, Normal Range of Motion, Non-Tender Neurological: Yes: certified orthotist II-XII NML intact, Fully Oriented, Alert, Motor Strength 5/5, Normal Mood/Affect Integumentary: Yes: Normal Color, Warm Lymphatic: Yes: Within Normal Limits - Diagnostic (1) Alcohol dependence with uncomplicated withdrawal Current Visit: Yes Status: Chronic (2) Asthma Current Visit: Yes Status: Chronic (3) Cocaine dependence, uncomplicated Current Visit: Yes Status: Chronic (4) Essential hypertension Current Visit: Yes Status: Chronic (5) Hypercholesterolemia Current Visit: Yes Status: Chronic (6) MDD (major depressive disorder) Current Visit: Yes Status: Chronic Qualifiers: Major depression episode severity: unspecified Comment: History. (7) Nicotine dependence Current Visit: Yes Status: Chronic Qualifiers: Nicotine product type: cigarettes Substance use status: in withdrawal Qualified Code(s): F17.213 - Nicotine dependence, cigarettes, with withdrawal (8) Obesity Current Visit: Yes Status: Chronic (9) Opioid dependence Current Visit: Yes Status: Chronic Qualifiers: Substance use status: uncomplicated Qualified Code(s): F11.20 - Opioid dependence, uncomplicated Screened but not Admitted - Documentation of Visit Screened but not Admitted: No Breathalyzer - Breathalyzer Breathalyzer: 0 Vital Signs - Vital Signs Vital signs refused: No Temperature: 97.5 F Temperature source: Oral Pulse Rate: 86 Respiratory Rate: 20 Blood Pressure: 117/75 BP Location: Left Arm Blood Pressure position: Sitting - Height Height: 6 ft 3 in - Weight Weight: 294 lb Weight measurement method: Standing scale - BMI Body Mass Index (BMI): 36.7 - Bowel Function Bowel Movement: Yes Urine Drug Screen - Test Device Lot number: [id number] Expiration date: 07/18/20 - Control Is test valid?: Yes - Results Drug screen NEGATIVE: No Urine drug screen results: KIARA-Cocaine, MTD-Methadone Inpatient Rehab Admission - Rehab Decision to Admit Inpatient rehab admission?: No
[2018-11-17] MEDS ORDERED: MAG HYDROX/AL HYDROX/SIMETH 30 ML UNIT-DOSE CUP PO PRN (12:10)
[2018-11-17] MEDS ORDERED: ACETAMINOPHEN 325 MG TABLET (FP) PO PRN ×2 (12:10)
[2018-11-17] MEDS ORDERED: IBUPROFEN 400 MG TABLET (FP) PO PRN (12:10)
[2018-11-17] MEDS ORDERED: MAGNESIUM CITRATE 300 ML BOTTLE PO PRN (12:10)
[2018-11-17] MEDS ORDERED: chlordiazePOXIDE HCL 25 MG CAPSULE PO PRN (12:10)
[2018-11-17] MEDS ORDERED: cloNIDine HCL 0.1 MG TABLET PO PRN (12:10)
[2018-11-17] MEDS ORDERED: hydrOXYzine PAMOATE 25 MG CAPSULE (FP) PO PRN (12:10)
[2018-11-17] MEDS ORDERED: BISMUTH SUBSALICYLATE 262 MG/15 ML BTL PO PRN (12:10)
[2018-11-17] MEDS ORDERED: MAGNESIUM HYDROX 2400MG/30ML ORAL SUSPENSION 30 ML CUP PO PRN (12:10)
[2018-11-17] MEDS ORDERED: MENTHOL/PHENOL 1 EACH UD MM PRN (12:10)
[2018-11-17] MEDS ORDERED: ALBUTEROL SO4 8 GM HFA INHALER IH PRN (12:12)
[2018-11-17] MEDS ORDERED: METHADONE HCL 10 MG TABLET (FOR DETOX USE ONLY) PO ONE (13:05)
[2018-11-17] MEDS: chlordiazePOXIDE HCL 25 MG CAPSULE PO SCH ×3 (13:22→22:01)
[2018-11-17 14:08] LABS: HEMATOCRIT 39.3 % (35.4-49); HEMOGLOBIN 13.2 GM/dL (11.7-16.9); MCH 29.8 pg (25.7-33.7); MCHC 33.7 g/dl (32.0-35.9); MEAN CELL VOLUME 88.5 fl (80-96); MEAN PLT VOLUME 8.6 fl (7.5-11.1); PLATELET COUNT 211 K/MM3 (134-434); RBC 4.44 M/mm3 (4.00-5.60); RDW 14.6 % (11.9-15.9); WHITE BLOOD COUNT 6.5 K/mm3 (4.0-10.0)
[2018-11-17 14:15] LABS: ALBUMIN 3.7 g/dl (3.4-5.0); BILIRUBIN,TOTAL 0.3 mg/dL (0.2-1); BLOOD UREA NITROGEN 16.7 mg/dL (7-18); CALCIUM 9.2 mg/dL (8.5-10.1); CREATININE 1.2 mg/dL (0.55-1.3); POTASSIUM 3.3 mmol/L (3.5-5.1); TOT PROT 7.6 g/dl (6.4-8.2)
[2018-11-17] MEDS: THIAMINE HCL 100 MG TABLET (FP) PO SCH (22:01)
[2018-11-17] MEDS: MELATONIN 5 MG TABLETS PO PRN (22:01)
[2018-11-17] MEDS: ATORVASTATIN CA 80 MG TABLET (FP) PO SCH (22:01)
[2018-11-17] MEDS: BUDESONIDE/FORMETEROL FUMARATE 80/4.5 mcg INHALER IH SCH (22:02)
[2018-11-18] MEDS: chlordiazePOXIDE HCL 25 MG CAPSULE PO SCH ×4 (06:03→22:18)
[2018-11-18] MEDS ORDERED: METHADONE HCL 5 MG TABLET (FOR DETOX USE ONLY) PO ONE (10:00)
[2018-11-18] MEDS: NICOTINE 7 MG/24 HOURS TOPICAL PATCH TD SCH (10:09)
[2018-11-18] MEDS: PRENATAL VITAMINS W/ FOLIC ACID TABLET (FP) PO SCH (10:09)
[2018-11-18] MEDS: CHLORTHALIDONE 25 MG TABLET PO SCH (10:10)
[2018-11-18] MEDS: BUDESONIDE/FORMETEROL FUMARATE 80/4.5 mcg INHALER IH SCH ×2 (10:10→22:18)
--- NOTE | 2018-11-18 11:19 | CONSULT ---
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 Refer to addiction counselor's summary for further information Medical History: Significant for dyslipidemia, hypertension, COPD/ bronchial asthma, herniated discs, chronic lower back pain and a history of surgery for removal of cyst in left hand, back surgery and orthosurgery (fracture right patella, torn ligament in right knee). Psychiatric History: Patient is a versatile historian whose historical narrative is inconsistent. Now told health underwriter that his first psychiatric contact was back in the late when he was admitted to [facility] for suicidal atempt by taking pills(denies previous suicidal attempt to Dr Roman). He said that he was diagnosed with MDD and prescribed Seroquel and Trazadone. Contrary to what was reported by Dr Roman during his most recent admission to this facility in July 2017(2-3 psychiatric hospitalizations), he reports that this was his only psychiatric hospitalization. Reports seeing psychiatric while in senior care in 2007- and prescribed Seroquel as well. Reports that his most recent outpatient psychiatric treatment was at [facility] where he was seeing both a therapist and psychiatrist. Claims that his last contact with any of them was approximaly 8 months ago and has been off medication for that long. He has no recollection of name of medication. At his most recent admission to this facility in July 2017, he saw Dr Roman and he was prescribed Ambien 10 mg/hs. He reported to Dr Roman that he was followed at the [facility] OPD clinic in [facility] and he was prescribed Celexa 20 mg/day. At present, reports feeling depressed and sleeping poorly. Physical/Sexual Abuse/Trauma History: Denies history of emotional, physical or sexual abuse as well as DV relationship. Reportedly traumatized by the experience of incarceration (2008). Mental Status Exam - Mental Status Exam Alert and Oriented to: Place, Person Cognitive Function: Fair Patient Appearance: Well Groomed Mood: Depressed Affect: Appropriate Patient Behavior: Cooperative Speech Pattern: Clear Voice Loudness: Normal Thought Process: Intact, Goal Oriented Thought Disorder: Not Present Hallucinations: Denies Suicidal Ideation: Denies Homicidal Ideation: Denies Insight/Judgement: Poor Sleep: Poorly Appetite: Good Muscle strength/Tone: Normal Gait/Station: Normal Psychiatric Findings - Problem List ([place] 1, 2,3) (1) MDD (major depressive disorder) Current Visit: Yes Status: Chronic Qualifiers: Major depression episode severity: unspecified Comment: History. (2) Substance induced mood disorder Current Visit: Yes Status: Acute (3) Substance-induced sleep disorder Current Visit: Yes Status: Acute (4) Alcohol dependence with uncomplicated withdrawal Current Visit: Yes Status: Acute (5) Opioid dependence, uncomplicated Current Visit: Yes Status: Acute (6) Cocaine dependence, uncomplicated Current Visit: Yes Status: Chronic (7) Asthma Current Visit: Yes Status: Chronic (8) Essential hypertension Current Visit: Yes Status: Chronic (9) Hypercholesterolemia Current Visit: Yes Status: Chronic (10) Obesity Current Visit: Yes Status: Chronic - Initial Treatment Plan Initial Treatment Plan: 1) Start Belsomra 10 mg po HS prn for insomnia. 2) Continue inpatient detoxification
[2018-11-18] MEDS ORDERED: POTASSIUM CHLORIDE TABS 20 MEQ TABLET.ER (FP) PO ONE (12:22)
--- NOTE | 2018-11-18 12:22 | PN ---
[facility] CIWA - CIWA Score Nausea/Vomitin-Mild Nausea/No Vomiting Muscle Tremors: 2 Anxiety: 2 Agitation: 2 Paroxysmal Sweats: No Perspiration Orientation: 0-Oriented Tacttile Disturbances: 1-Very Mild Itch/Numbness Auditory Disturbances: 0-None Visual Disturbances: 0-None Headache: 2-Mild CIWA-Ar Total Score: 10 BHS COWS - Scale Resting Pulse: 1= [place] 81-100 Sweatin= No chills or Flushing Restless Observation: 1= Difficult to Sit Still Pupil Size: 1= Pupils >than Normal Bone or Joint Aches: 2= Severe Diffuse Aches Runny Nose/ Eye Tearin= Nasal Congestion GI Upset > 30mins: 1= Stomach Cramp Tremor Observation of Outstretched Hands: 2= Slight Tremor Visible Yawning Observation: 1= 1-2x During Session Anxiety or Irritability: 2=Irritable/Anxious Goose Flesh Skin: 0=Smooth Skin COWS Score: 12 S Progress Note (SOAP) Subjective: alert,irritable,anxious,interrupted sleep,tremor,pain in the body and back, tremor Objective: 11/18/18 12:18 Vital Signs Temperature 97.1 F L 11/18/18 09:41 Pulse Rate 92 H 11/18/18 09:41 Respiratory Rate 18 11/18/18 09:41 Blood Pressure 107/73 11/18/18 09:41 O2 Sat by Pulse Oximetry (%) Laboratory Last Values WBC 6.5 K/mm3 (4.0-10.0) 11/17/18 13:20 RBC 4.44 M/mm3 (4.00-5.60) 11/17/18 13:20 Hgb 13.2 GM/dL (11.7-16.9) 11/17/18 13:20 Hct 39.3 % (35.4-49) 11/17/18 13:20 MCV 88.5 fl (80-96) 11/17/18 13:20 MCH 29.8 pg (25.7-33.7) 11/17/18 13:20 MCHC 33.7 g/dl (32.0-35.9) 11/17/18 13:20 RDW 14.6 % (11.9-15.9) 11/17/18 13:20 Plt Count 211 K/MM3 (134-434) 11/17/18 13:20 MPV 8.6 fl (7.5-11.1) 11/17/18 13:20 Sodium 138 mmol/L (136-145) 11/17/18 13:20 Potassium 3.3 mmol/L (3.5-5.1) L 11/17/18 13:20 Chloride 103 mmol/L (98-107) 11/17/18 13:20 Carbon Dioxide 28 mmol/L (21-32) 11/17/18 13:20 Anion Gap 7 MMOL/L (8-16) L 11/17/18 13:20 BUN 16.7 mg/dL (7-18) 11/17/18 13:20 Creatinine 1.2 mg/dL (0.55-1.3) 11/17/18 13:20 Est GFR (CKD-EPI)AfAm 74.66 11/17/18 13:20 Est GFR (CKD-EPI)NonAf 64.42 11/17/18 13:20 Random Glucose 135 mg/dL (74-106) H 11/17/18 13:20 Calcium 9.2 mg/dL (8.5-10.1) 11/17/18 13:20 Total Bilirubin 0.3 mg/dL (0.2-1) 11/17/18 13:20 AST 17 U/L (15-37) 11/17/18 13:20 ALT 21 U/L (13-61) 11/17/18 13:20 Alkaline Phosphatase 55 U/L (45-117) 11/17/18 13:20 Total Protein 7.6 g/dl (6.4-8.2) 11/17/18 13:20 Albumin 3.7 g/dl (3.4-5.0) 11/17/18 13:20 Assessment: 11/18/18 12:19 withdrawal symptom Plan: continue detox methadone and librium regimen,k replacement k is 3.3,glucose 135, will do fasting glucose in am,cane for ambulatory aid ,has arthritis left knee
[2018-11-18] MEDS: AMMONIUM LACTATE 12% LOTION 225 GM BOTTLE TP SCH ×2 (13:35→22:19)
[2018-11-18] MEDS ORDERED: SUVOREXANT 10 MG TABLET PO PRN (22:00)
[2018-11-18] MEDS: THIAMINE HCL 100 MG TABLET (FP) PO SCH (22:18)
[2018-11-18] MEDS: ATORVASTATIN CA 80 MG TABLET (FP) PO SCH (22:18)
[2018-11-18] MEDS: MELATONIN 5 MG TABLETS PO PRN (22:19)
[2018-11-19] MEDS: chlordiazePOXIDE HCL 25 MG CAPSULE PO SCH ×4 (05:50→22:26)
[2018-11-19] MEDS ORDERED: METHADONE HCL 10 MG TABLET (FOR DETOX USE ONLY) PO ONE (10:00)
[2018-11-19] MEDS: NICOTINE 7 MG/24 HOURS TOPICAL PATCH TD SCH (10:07)
[2018-11-19] MEDS: CHLORTHALIDONE 25 MG TABLET PO SCH (10:07)
[2018-11-19] MEDS: PRENATAL VITAMINS W/ FOLIC ACID TABLET (FP) PO SCH (10:07)
[2018-11-19] MEDS: BUDESONIDE/FORMETEROL FUMARATE 80/4.5 mcg INHALER IH SCH ×2 (10:07→22:26)
[2018-11-19] MEDS: POTASSIUM CHLORIDE TABS 20 MEQ TABLET.ER (FP) PO SCH (10:07)
[2018-11-19 10:59] LABS: POTASSIUM 3.9 mmol/L (3.5-5.1)
--- NOTE | 2018-11-19 11:10 | PN ---
S CIWA - CIWA Score Nausea/Vomitin Muscle Tremors: 1-None Visible, but [place] Anxiety: 2 Agitation: 2 Paroxysmal Sweats: No Perspiration Orientation: 0-Oriented Tacttile Disturbances: 1-Very Mild Itch/Numbness Auditory Disturbances: 0-None Visual Disturbances: 1-Very Mild Sensitivity Headache: 1-Very Mild CIWA-Ar Total Score: 10 BHS COWS - Scale Resting Pulse: 0= [place] 80 or Below Sweatin= Chills/Flushing Restless Observation: 1= Difficult to Sit Still Pupil Size: 1= Pupils >than Normal Bone or Joint Aches: 1= Mild Discomfort Runny Nose/ Eye Tearin= Nasal Congestion GI Upset > 30mins: 1= Stomach Cramp Tremor Observation of Outstretched Hands: 1= Tremor [place], Not Seen Yawning Observation: 1= 1-2x During Session Anxiety or Irritability: 2=Irritable/Anxious Goose Flesh Skin: 0=Smooth Skin COWS Score: 10 S Progress Note (SOAP) Subjective: alert,irritable,anxious,interrupted sleep,loose bowel movement,pain in the left knee Objective: 11/19/18 11:07 Vital Signs Temperature 97.6 F 11/19/18 09:18 Pulse Rate 74 11/19/18 09:18 Respiratory Rate 18 11/19/18 09:18 Blood Pressure 131/70 11/19/18 09:18 O2 Sat by Pulse Oximetry (%) 11/19/18 11:08 Laboratory Results - last 24 hr 11/17/18 11/19/18 13:20 08:00 Potassium 3.9 Fasting Glucose 125 H RPR Titer Nonreactive Assessment: 11/19/18 11:08 withdrawal symptom Plan: continue detox methadone and librium regimen,diet modification,psychiatric reevaluation for medication for depression
[2018-11-19] MEDS: AMMONIUM LACTATE 12% LOTION 225 GM BOTTLE TP SCH ×2 (14:27→22:26)
[2018-11-19] MEDS: THIAMINE HCL 100 MG TABLET (FP) PO SCH (22:25)
[2018-11-19] MEDS: ATORVASTATIN CA 80 MG TABLET (FP) PO SCH (22:25)
[2018-11-19] MEDS: MELATONIN 5 MG TABLETS PO PRN (22:26)
[2018-11-19] MEDS: METHOCARBAMOL 500 MG TABLET PO PRN (22:30)
[2018-11-20] MEDS ORDERED: chlordiazePOXIDE HCL 10 MG CAPSULE PO PRN
[2018-11-20] MEDS ORDERED: METHADONE HCL 5 MG TABLET (FOR DETOX USE ONLY) PO ONE (06:00)
[2018-11-20] MEDS: chlordiazePOXIDE HCL 10 MG CAPSULE PO SCH ×4 (06:00→22:15)
--- NOTE | 2018-11-20 11:19 | PN ---
S Progress Note Note: Asked to reconsult for reevaluation of medication. Patient approached at bedside. Told headline writer:"I'm all right, I did not ask to see you"
[2018-11-20] MEDS: PRENATAL VITAMINS W/ FOLIC ACID TABLET (FP) PO SCH (12:03)
[2018-11-20] MEDS: NICOTINE 7 MG/24 HOURS TOPICAL PATCH TD SCH (12:03)
[2018-11-20] MEDS: POTASSIUM CHLORIDE TABS 20 MEQ TABLET.ER (FP) PO SCH (12:03)
[2018-11-20] MEDS: AMMONIUM LACTATE 12% LOTION 225 GM BOTTLE TP SCH ×2 (12:04→22:15)
[2018-11-20] MEDS: BUDESONIDE/FORMETEROL FUMARATE 80/4.5 mcg INHALER IH SCH ×2 (12:04→22:16)
[2018-11-20] MEDS: BACITRACIN 15 GM TUBE TOPICAL OINTMENT TP SCH ×2 (14:30→22:16)
[2018-11-20] MEDS: CHLORTHALIDONE 25 MG TABLET PO SCH (14:31)
--- NOTE | 2018-11-20 15:16 | PN ---
S CIWA - CIWA Score Nausea/Vomitin Muscle Tremors: 1-None Visible, but [place] Anxiety: 3 Agitation: 0-Normal Activity Paroxysmal Sweats: 2 Orientation: 0-Oriented Tacttile Disturbances: 1-Very Mild Itch/Numbness Auditory Disturbances: 1-Very Mild Visual Disturbances: 1-Very Mild Sensitivity Headache: 0-None Present CIWA-Ar Total Score: 11 S COWS - Scale Resting Pulse: 0= [place] 80 or Below Sweatin= Chills/Flushing Restless Observation: 1= Difficult to Sit Still Pupil Size: 0= Normal to Room Light Bone or Joint Aches: 1= Mild Discomfort Runny Nose/ Eye Tearin= Nasal Congestion GI Upset > 30mins: 1= Stomach Cramp Tremor Observation of Outstretched Hands: 1= Tremor [place], Not Seen Yawning Observation: 1= 1-2x During Session Anxiety or Irritability: 1=Feels Anxious/Irritable Goose Flesh Skin: 0=Smooth Skin COWS Score: 8 S Progress Note (SOAP) Subjective: c/o of body aches, left knee pain (chronic) pending knee replacement, back pain , chills, sweats Objective: 11/20/18 15:07 Vital Signs Temperature 97.3 F L 11/20/18 09:38 Pulse Rate 76 11/20/18 09:38 Respiratory Rate 20 11/20/18 09:38 Blood Pressure 113/73 11/20/18 09:38 O2 Sat by Pulse Oximetry (%) Laboratory Last Values WBC 6.5 K/mm3 (4.0-10.0) 11/17/18 13:20 RBC 4.44 M/mm3 (4.00-5.60) 11/17/18 13:20 Hgb 13.2 GM/dL (11.7-16.9) 11/17/18 13:20 Hct 39.3 % (35.4-49) 11/17/18 13:20 MCV 88.5 fl (80-96) 11/17/18 13:20 MCH 29.8 pg (25.7-33.7) 11/17/18 13:20 MCHC 33.7 g/dl (32.0-35.9) 11/17/18 13:20 RDW 14.6 % (11.9-15.9) 11/17/18 13:20 Plt Count 211 K/MM3 (134-434) 11/17/18 13:20 MPV 8.6 fl (7.5-11.1) 11/17/18 13:20 Sodium 138 mmol/L (136-145) 11/17/18 13:20 Potassium 3.9 mmol/L (3.5-5.1) 11/19/18 08:00 Chloride 103 mmol/L (98-107) 11/17/18 13:20 Carbon Dioxide 28 mmol/L (21-32) 11/17/18 13:20 Anion Gap 7 MMOL/L (8-16) L 11/17/18 13:20 BUN 16.7 mg/dL (7-18) 11/17/18 13:20 Creatinine 1.2 mg/dL (0.55-1.3) 11/17/18 13:20 Est GFR (CKD-EPI)AfAm 74.66 11/17/18 13:20 Est GFR (CKD-EPI)NonAf 64.42 11/17/18 13:20 Random Glucose 135 mg/dL (74-106) H 11/17/18 13:20 Fasting Glucose 125 mg/dL (74-106) H 11/19/18 08:00 Calcium 9.2 mg/dL (8.5-10.1) 11/17/18 13:20 Total Bilirubin 0.3 mg/dL (0.2-1) 11/17/18 13:20 AST 17 U/L (15-37) 11/17/18 13:20 ALT 21 U/L (13-61) 11/17/18 13:20 Alkaline Phosphatase 55 U/L (45-117) 11/17/18 13:20 Total Protein 7.6 g/dl (6.4-8.2) 11/17/18 13:20 Albumin 3.7 g/dl (3.4-5.0) 11/17/18 13:20 RPR Titer Nonreactive (NONREACTIVE) 11/17/18 13:20 labs reviewed Assessment: 11/20/18 15:09 Aox3 no acute distress, ambulating in the unit with cane withdrawal sx Plan: increase fluids continue detox follow up with PCP upon discharge MAT reviewed with patient benefits and risks, reports no interested, wishes to follow with rehab post detox
[2018-11-20] MEDS: THIAMINE HCL 100 MG TABLET (FP) PO SCH (22:15)
[2018-11-20] MEDS: ATORVASTATIN CA 80 MG TABLET (FP) PO SCH (22:15)
[2018-11-20] MEDS: METHOCARBAMOL 500 MG TABLET PO PRN (22:15)
[2018-11-21] MEDS ORDERED: chlordiazePOXIDE HCL 10 MG CAPSULE PO SCH (05:00)
[2018-11-21] MEDS: CHLORTHALIDONE 25 MG TABLET PO SCH (10:21)
[2018-11-21] MEDS: BACITRACIN 15 GM TUBE TOPICAL OINTMENT TP SCH (10:21)
[2018-11-21] MEDS: BUDESONIDE/FORMETEROL FUMARATE 80/4.5 mcg INHALER IH SCH (10:22)
[2018-11-21] MEDS: PRENATAL VITAMINS W/ FOLIC ACID TABLET (FP) PO SCH (10:22)
[2018-11-21] MEDS: NICOTINE 7 MG/24 HOURS TOPICAL PATCH TD SCH (10:22)
[2018-11-21] MEDS: AMMONIUM LACTATE 12% LOTION 225 GM BOTTLE TP SCH (10:24)
--- NOTE | 2018-11-21 11:56 | PN ---
[facility] CIWA - CIWA Score Nausea/Vomitin-No Nausea/No Vomiting Muscle Tremors: 2 Anxiety: 1-Mildly Anxious Agitation: 1-Slight > Activity Paroxysmal Sweats: 1-Minimal [place] Moist Orientation: 0-Oriented Tacttile Disturbances: 0-None Auditory Disturbances: 0-None Visual Disturbances: 0-None Headache: 0-None Present CIWA-Ar Total Score: 5 BHS COWS - Scale Resting Pulse: 1= [place] 81-100 Sweatin= No chills or Flushing Restless Observation: 0= Sits Still Pupil Size: 0= Normal to Room Light Bone or Joint Aches: 1= Mild Discomfort Runny Nose/ Eye Tearin= Nasal Congestion GI Upset > 30mins: 0= None Tremor Observation of Outstretched Hands: 1= Tremor [place], Not Seen Yawning Observation: 0= None Anxiety or Irritability: 1=Feels Anxious/Irritable Goose Flesh Skin: 0=Smooth Skin COWS Score: 5 [facility] Progress Note (SOAP) Subjective: sweats feeling better Objective: 11/21/18 11:56 Vital Signs Temperature 97.6 F 11/21/18 10:15 Pulse Rate 90 11/21/18 10:15 Respiratory Rate 18 11/21/18 10:15 Blood Pressure 127/70 11/21/18 10:15 O2 Sat by Pulse Oximetry (%) aaox3 ambulating no acute distress Assessment: 11/21/18 11:56 mild withdrawals Plan: continue detox d/c in am
[2018-11-21 13:07] VITALS: BP 138/81; PULSE 94; TEMP 98.1
--- NOTE | 2018-11-21 14:52 | DS ---
[facility] Detox Discharge Summary Admission Date: 11/17/18 Discharge Date: 11/21/18 - History Present History: Alcohol Dependence, Opioid Dependence - Physical Exam Results Vital Signs: Vital Signs Temperature 98.1 F 11/21/18 13:06 Pulse Rate 94 H 11/21/18 13:06 Respiratory Rate 18 11/21/18 13:06 Blood Pressure 138/81 11/21/18 13:06 O2 Sat by Pulse Oximetry (%) Pertinent Admission Physical Exam Findings: ROS: denies alcohol cravings, n/v/d, sleep disturbance and anxiety. Complain of mild sweating. PE alert and oriented x 3 skin warm and dry +perrla, eoms intact bl car s1s2 resp cta bl ext full rom, amb ad shaylee no tremors - Treatment Hospital Course: Detox Protocol Followed, Detoxed Safely, Responded well, Discharged Condition Good Patient has Accepted a Rehab Referral to: Patient encouraged to attend AA/NA for group meetings to prevent relapse. - Medication Discharge Medications: Ambulatory Orders Albuterol Sulfate Inhaler - [Ventolin HFA Inhaler -] 2 puff IH Q4H PRN #1 inhaler 04/30/17 Budesonide/Formeterol Fumarate [SYMBICORT 80/4.5mcg -] 2 puff IH BID #1 inhaler 04/30/17 Atorvastatin Ca [Lipitor] 80 mg PO HS 07/23/17 Chlorthalidone 25 mg PO DAILY 07/23/17 Tiotropium [place] [Spiriva] 1 inh PO DAILY 05/23/18 - AMA Did Patient Leave Against Medical Advice: No
[2018-11-22] MEDS ORDERED: chlordiazePOXIDE HCL 10 MG CAPSULE PO ONE (05:00)
== END 2018-11-21 14:44 | disposition home or self-care (01) | DRG 773 ==
LOC: YASAS 10:18 → Y6N 12:43
PROVIDERS: ADMIT Surgery; ATTEND Surgery
PROC: HZ2ZZZZ Detoxification Services for Substance Abuse Treatment (ICD-10-PCS; principal; 2018-11-17)
DX: F11.23 Opioid dependence with withdrawal (principal); F10.230 Alcohol dependence with withdrawal, uncomplicated; F14.20 Cocaine dependence, uncomplicated; F17.210 Nicotine dependence, cigarettes, uncomplicated; F19.282 Other psychoactive substance dependence with psychoactive substance-induced sleep disorder; F19.24 Other psychoactive substance dependence with psychoactive substance-induced mood disorder; F32.9 Major depressive disorder, single episode, unspecified; I10 Essential (primary) hypertension; E78.5 Hyperlipidemia, unspecified; E78.00 Pure hypercholesterolemia, unspecified; J44.9 Chronic obstructive pulmonary disease, unspecified; J45.998 Other asthma; E66.9 Obesity, unspecified; Z68.36 Body mass index [BMI] 36.0-36.9, adult; M25.562 Pain in left knee; G89.29 Other chronic pain; Z99.89 Dependence on other enabling machines and devices; Z91.013 Allergy to seafood; Z91.018 Allergy to other foods
CPT/HCPCS: 36415; 71046-TC-FY; 80053; 82947; 84132; 85027; 86593